=== PATIENT | male | born 1985 | race Caucasian/White ===

== ENCOUNTER → 2018-08-02 13:13 | Outpatient (CLI) | payer MEDICAID, SELFPAY ==
[2018-08-02 14:07] LABS: INR 0.98 (0.9-1.1); Prothrombin Time 10.1 seconds (9.4-11.8)
[2018-08-02 15:00] LABS: Basophils % 0.6 % (0.1-2.0); Eosinophils # 0.1 K/mm3 (0.0-0.4); Eosinophils % 1.6 % (0.1-12.0); Lymphocytes # 1.6 K/mm3 (0.7-4.5); Lymphocytes % 32.4 % (10-50); Mean Corpuscular HGB Conc 33.3 g/dL (31.8-35.4); Mean Corpuscular Hemoglobin 31.8 pg (27.0-31.2); Mean Corpuscular Volume 95.8 fl (80-94); Mean Platelet Volume 7.4 fl (7.4-10.4); Monocytes # 0.3 K/mm3 (0.1-1.0); Monocytes % 5.7 % (1.7-9.3); Neutrophils % 59.8 % (37.0-80.0); Platelet Count 202 K/mm3 (142-424); Red Blood Count 5.01 M/mm3 (4.60-6.20); Red Cell Distribution Width 12.3 % (11.5-17.5); White Blood Count 4.9 K/mm3 (4.8-10.8)
[2018-08-02 19:10] LABS: Alanine Aminotransferase 167 U/L (12-78); Albumin Level 4.1 gm/dL (3.4-5.0); Albumin/Globulin Ratio 1.2 (1.1-1.8); Alkaline Phosphatase 71 U/L (46-116); Anion Gap 11.6 mEq/L (5-15); Aspartate Amino Transferase 59 U/L (15-37); Bilirubin,Total 0.5 mg/dL (0.2-1.0); Blood Urea Nitrogen 20 mg/dL (7-18); Calcium 9.1 mg/dL (8.5-10.1); Carbon Dioxide 32 mmol/L (21.0-32.0); Chloride 101 mmol/L (98-107); Chol/HDL Ratio 3.6 (1-3.5); Cholesterol 206 mg/dL (140-200); Creatinine,Serum 1.19 mg/dL (0.70-1.30); Estimated Glomerular Filt Rate 70 ml/min (>60); GFR (African American) 84 ML/MIN (>60); Globulin 3.5 gm/dl (1.3-3.2); Glucose 81 mg/dL (74-106); HDL Cholesterol 58 mg/dL (27-67); LDL Cholesterol 116 mg/dL (0-130); Potassium 4.6 mmoL/L (3.5-5.1); Sodium 140 mmol/L (136-145); Thyroid Stimulating Hormone 2.15 uIU/ml (0.358-3.740); Total Protein,Serum 7.6 gm/dL (6.4-8.2); Triglycerides 160 mg/dL (30-200); VLDL Cholesterol 32 mg/dL (0-40)
[2018-08-03 08:24] LABS: Hep B Core Ab, Total Positive (Negative); Hepatitis B Surface Antigen Negative (Negative)
[2018-08-03 13:59] LABS: Hep A Ab, Total Negative (Negative); Hepatitis B Surf Ab Quant 746.5 mIU/mL (Immunity>9.9); Hepatitis C Antibody >11.0 s/co ratio (0.0-0.9); Vitamin D 25 Hydroxy 30.8 ng/mL (30.0-100.0)
[2018-08-03 14:00] LABS: HIV Screen 4th Generation wRfx Non Reactive (Non Reactive)
[2018-08-05 21:08] LABS: HCV Genotype Charge YES; Hepatitis C Genotype 1a (.)
== END ==
PROVIDERS: Visit Provider Physician Assistant
DX: B19.20 Unspecified viral hepatitis C without hepatic coma (principal); F41.9 Anxiety disorder, unspecified; Z20.2 Contact with and (suspected) exposure to infections with a predominantly sexual mode of transmission
CPT/HCPCS: 36415; 80053; 80061; 82652; 84443; 85025; 85610; 86703; 86704; 86706; 86708; 87340; 87380; 87522; 87902; G0432

== ENCOUNTER → 2019-02-28 12:27 | Outpatient (CLI) | payer OTHER, MEDICAID, SELFPAY ==
[2019-02-28 12:52] LABS: INR 1.03 (0.9-1.1); Prothrombin Time 10.7 seconds (9.4-11.8)
[2019-02-28 13:07] LABS: Basophils % 0.4 % (0.1-2.0); Hematocrit 39.9 % (42.0-52.0); Hemoglobin 13.5 g/dL (14.1-18.0); Lymphocytes % 25.2 % (10-50); Mean Corpuscular HGB Conc 33.8 g/dL (31.8-35.4); Mean Corpuscular Volume 91.8 fl (80-94); Mean Platelet Volume 7.3 fl (7.4-10.4); Monocytes # 0.2 K/mm3 (0.1-1.0); Monocytes % 5.2 % (1.7-9.3); Neutrophils # 2.7 K/mm3 (1.8-7.8); Neutrophils % 68.3 % (37.0-80.0); Platelet Count 218 K/mm3 (142-424); Red Blood Count 4.35 M/mm3 (4.60-6.20); Red Cell Distribution Width 12.4 % (11.5-17.5)
[2019-02-28 13:23] LABS: Alanine Aminotransferase 95 U/L (12-78); Albumin Level 3.8 gm/dL (3.4-5.0); Albumin/Globulin Ratio 1.1 (1.1-1.8); Alkaline Phosphatase 73 U/L (46-116); Anion Gap 10.4 mEq/L (5-15); Aspartate Amino Transferase 44 U/L (15-37); Bilirubin,Total 0.5 mg/dL (0.2-1.0); Blood Urea Nitrogen 16 mg/dL (7-18); Calcium 9.3 mg/dL (8.5-10.1); Carbon Dioxide 31 mmol/L (21.0-32.0); Chloride 103 mmol/L (98-107); Creatinine,Serum 1.13 mg/dL (0.70-1.30); Estimated Glomerular Filt Rate 73 ml/min (>60); GFR (African American) 89 ML/MIN (>60); Globulin 3.5 gm/dl (1.3-3.2); Glucose 91 mg/dL (74-106); Potassium 4.4 mmoL/L (3.5-5.1); Sodium 140 mmol/L (136-145); Total Protein,Serum 7.3 gm/dL (6.4-8.2)
[2019-03-04 10:10] LABS: HCV Genotype Charge YES; Hepatitis C Genotype 1a (.)
== END ==
PROVIDERS: Visit Provider Physician Assistant
DX: B19.20 Unspecified viral hepatitis C without hepatic coma (principal)
CPT/HCPCS: 36415; 80053; 85025; 85610; 87522; 87902

== ENCOUNTER → 2019-06-03 17:00 | Outpatient (CLI) | payer OTHER, MEDICAID, SELFPAY ==
[2019-06-03 19:40] LABS: Amphetamine/Metha Screen,Urine Negative ng/mL (<1000); Barbiturates Screen,Urine Negative ng/mL (<200); Benzodiazepines Screen,Urine Negative ng/mL (<200); Cannabinoid Screen,Urine Negative ng/mL (<50); Cocaine Screen,Urine Negative ng/mL (<300); Methadone Screen,Urine Negative ng/mL (<300); Opiate Screen,Urine Negative ng/mL (<300); Phencyclidine Screen,Urine Negative ng/mL (<25)
== END ==
PROVIDERS: Visit Provider Nurse Practitioner Family
DX: Z79.899 Other long term (current) drug therapy (principal)
CPT/HCPCS: 80305

== ENCOUNTER → 2019-08-16 17:43 | Outpatient (CLI) | payer OTHER, MEDICAID, SELFPAY ==
[2019-08-16 18:02] LABS: Basophils % 0.5 % (0.1-2.0); Eosinophils # 0.2 K/mm3 (0.0-0.4); Eosinophils % 2.6 % (0.1-12.0); Hematocrit 42.2 % (42.0-52.0); Hemoglobin 14.6 g/dL (14.1-18.0); Lymphocytes # 2.5 K/mm3 (0.7-4.5); Lymphocytes % 40.7 % (10-50); Mean Corpuscular HGB Conc 34.5 g/dL (31.8-35.4); Mean Corpuscular Hemoglobin 31.7 pg (27.0-31.2); Mean Corpuscular Volume 91.9 fl (80-94); Mean Platelet Volume 7.6 fl (7.4-10.4); Monocytes # 0.2 K/mm3 (0.1-1.0); Monocytes % 3.7 % (1.7-9.3); Neutrophils # 3.2 K/mm3 (1.8-7.8); Neutrophils % 52.4 % (37.0-80.0); Platelet Count 247 K/mm3 (142-424); Red Blood Count 4.59 M/mm3 (4.60-6.20); Red Cell Distribution Width 12.4 % (11.5-17.5); White Blood Count 6.1 K/mm3 (4.8-10.8)
[2019-08-16 18:10] LABS: INR 1.01 (0.9-1.1); Prothrombin Time 10.5 seconds (9.4-11.8)
[2019-08-16 18:36] LABS: Alanine Aminotransferase 127 U/L (12-78); Albumin Level 4.1 gm/dL (3.4-5.0); Albumin/Globulin Ratio 1.3 (1.1-1.8); Alkaline Phosphatase 70 U/L (46-116); Aspartate Amino Transferase 68 U/L (15-37); Bilirubin,Total 0.4 mg/dL (0.2-1.0); Blood Urea Nitrogen 20 mg/dL (7-18); Calcium 9.4 mg/dL (8.5-10.1); Chloride 104 mmol/L (98-107); Creatinine,Serum 1.12 mg/dL (0.70-1.30); Estimated Glomerular Filt Rate 74 ml/min (>60); GFR (African American) 90 ML/MIN (>60); Globulin 3.2 gm/dl (1.3-3.2); Glucose 92 mg/dL (74-106); Potassium 4.5 mmoL/L (3.5-5.1); Sodium 143 mmol/L (136-145); Total Protein,Serum 7.3 gm/dL (6.4-8.2)
[2019-08-16 19:30] LABS: Anion Gap 12.5 mEq/L (5-15); Carbon Dioxide 31 mmol/L (21.0-32.0)
[2019-08-18 09:43] LABS: Hep A Ab, IgM Negative (Negative); Hep A Ab, Total Positive (Negative); Hep B Core Ab, Total Positive (Negative)
[2019-08-18 12:32] LABS: HIV Screen 4th Generation wRfx Non Reactive (Non Reactive); Hep B Surface Ab, Qual Reactive (.); Hepatitis B Surface Antigen Negative (Negative)
[2019-08-20 23:50] LABS: HCV Genotype Charge YES; Hepatitis C Genotype 1a (.)
== END ==
PROVIDERS: Visit Provider Physician Assistant
DX: B19.20 Unspecified viral hepatitis C without hepatic coma (principal); M54.5 Low back pain; Z11.4 Encounter for screening for human immunodeficiency virus [HIV]
CPT/HCPCS: 36415; 80053; 85025; 85610; 86703; 86704; 86706; 86708; 87340; 87522; 87902; G0432

== ENCOUNTER → 2019-09-24 08:53 | Outpatient (CLI) | payer OTHER, MEDICAID, SELFPAY ==
[2019-09-24 09:12] LABS: Basophils % 0.2 % (0.1-2.0); Eosinophils # 0.1 K/mm3 (0.0-0.4); Eosinophils % 2.4 % (0.1-12.0); Hematocrit 42.7 % (42.0-52.0); Hemoglobin 14.6 g/dL (14.1-18.0); Lymphocytes # 1.3 K/mm3 (0.7-4.5); Lymphocytes % 30.3 % (10-50); Mean Corpuscular HGB Conc 34.1 g/dL (31.8-35.4); Mean Corpuscular Hemoglobin 31.8 pg (27.0-31.2); Mean Corpuscular Volume 93.3 fl (80-94); Mean Platelet Volume 8.5 fl (7.4-10.4); Monocytes # 0.2 K/mm3 (0.1-1.0); Monocytes % 5.1 % (1.7-9.3); Neutrophils # 2.6 K/mm3 (1.8-7.8); Platelet Count 214 K/mm3 (142-424); Red Blood Count 4.58 M/mm3 (4.60-6.20); Red Cell Distribution Width 12.5 % (11.5-17.5); White Blood Count 4.2 K/mm3 (4.8-10.8)
[2019-09-24 09:19] LABS: INR 0.99 (0.9-1.1); Prothrombin Time 10.3 seconds (9.4-11.8)
[2019-09-24 10:12] LABS: Chloride 102 mmol/L (98-107)
[2019-09-24 10:13] LABS: Potassium 4.3 mmoL/L (3.5-5.1); Sodium 138 mmol/L (136-145)
[2019-09-24 10:15] LABS: Alanine Aminotransferase 77 U/L (12-78); Aspartate Amino Transferase 51 U/L (17-59); Blood Urea Nitrogen 20 mg/dl (9-20); Estimated Glomerular Filt Rate 76 ml/min (>60); GFR (African American) 92 ML/MIN (>60)
[2019-09-24 10:16] LABS: Albumin Level 4.3 g/dl (3.5-5.0); Albumin/Globulin Ratio 1.4 (1.1-1.8); Alkaline Phosphatase 63 U/L (38-126); Anion Gap 7.3 mEq/L (5-15); Bilirubin,Total 0.6 mg/dl (0.2-1.3); Calcium 9.7 mg/dl (8.4-10.2); Carbon Dioxide 33 mmol/L (22.0-30.0); Glucose 53 mg/dl (74-100); Total Protein,Serum 7.3 g/dl (6.3-8.2)
== END ==
PROVIDERS: Visit Provider Physician Assistant
DX: B19.20 Unspecified viral hepatitis C without hepatic coma (principal)
CPT/HCPCS: 36415; 80053; 85025; 85610; 87522

== ENCOUNTER → 2019-10-07 09:55 | Outpatient (CLI) | payer OTHER, MEDICAID, SELFPAY ==
[2019-10-07 11:04] LABS: Basophils % 0.3 % (0.1-2.0); Eosinophils # 0.1 K/mm3 (0.0-0.4); Hematocrit 39.9 % (42.0-52.0); Hemoglobin 14.1 g/dL (14.1-18.0); Lymphocytes # 1.6 K/mm3 (0.7-4.5); Lymphocytes % 34.3 % (10-50); Mean Corpuscular HGB Conc 35.4 g/dL (31.8-35.4); Mean Corpuscular Hemoglobin 31.8 pg (27.0-31.2); Mean Platelet Volume 8.2 fl (7.4-10.4); Monocytes # 0.2 K/mm3 (0.1-1.0); Monocytes % 5.1 % (1.7-9.3); Neutrophils # 2.6 K/mm3 (1.8-7.8); Neutrophils % 57.3 % (37.0-80.0); Platelet Count 204 K/mm3 (142-424); Red Blood Count 4.43 M/mm3 (4.60-6.20); Red Cell Distribution Width 12.4 % (11.5-17.5); White Blood Count 4.5 K/mm3 (4.8-10.8)
[2019-10-07 12:49] LABS: Alanine Aminotransferase 24 U/L (12-78); Albumin Level 4.2 g/dl (3.5-5.0); Albumin/Globulin Ratio 1.5 (1.1-1.8); Alkaline Phosphatase 57 U/L (38-126); Anion Gap 12.4 mEq/L (5-15); Aspartate Amino Transferase 33 U/L (17-59); Bilirubin,Total 0.5 mg/dl (0.2-1.3); Blood Urea Nitrogen 25 mg/dl (9-20); Calcium 9.6 mg/dl (8.4-10.2); Carbon Dioxide 26 mmol/L (22.0-30.0); Chloride 102 mmol/L (98-107); Estimated Glomerular Filt Rate 95 ml/min (>60); GFR (African American) 116 ML/MIN (>60); Globulin 2.8 g/dL (1.3-3.2); Glucose 110 mg/dl (74-100); Potassium 4.4 mmoL/L (3.5-5.1); Sodium 136 mmol/L (136-145)
== END ==
PROVIDERS: Visit Provider Physician Assistant
DX: B19.20 Unspecified viral hepatitis C without hepatic coma (principal)
CPT/HCPCS: 36415; 80053; 85025; 87522

== ENCOUNTER → 2019-10-21 11:28 | Outpatient (CLI) | payer OTHER, MEDICAID, SELFPAY ==
[2019-10-21 11:30] LABS: Microscopic, Urine URINE MICROSCOPIC (MICROSCOPIC)
[2019-10-21 11:52] LABS: Basophils % 0.3 % (0.1-2.0); Eosinophils # 0.1 K/mm3 (0.0-0.4); Eosinophils % 2.9 % (0.1-12.0); Hematocrit 41.2 % (42.0-52.0); Hemoglobin 14.3 g/dL (14.1-18.0); Lymphocytes # 1.7 K/mm3 (0.7-4.5); Lymphocytes % 36.4 % (10-50); Mean Corpuscular HGB Conc 34.7 g/dL (31.8-35.4); Mean Corpuscular Hemoglobin 31.8 pg (27.0-31.2); Mean Corpuscular Volume 91.5 fl (80-94); Mean Platelet Volume 8.3 fl (7.4-10.4); Monocytes # 0.2 K/mm3 (0.1-1.0); Monocytes % 4.6 % (1.7-9.3); Neutrophils # 2.5 K/mm3 (1.8-7.8); Neutrophils % 55.8 % (37.0-80.0); Platelet Count 211 K/mm3 (142-424); Red Cell Distribution Width 12.6 % (11.5-17.5); White Blood Count 4.6 K/mm3 (4.8-10.8)
[2019-10-21 12:07] LABS: INR 0.97 (0.9-1.1); Prothrombin Time 10.1 seconds (9.4-11.8)
[2019-10-21 12:26] LABS: Appearance,Urine CLEAR (Clear); Bilirubin,Urine Negative (Negative); Blood, Urine Negative (Negative); Color,Urine YELLOW (Yellow); Glucose,Urine (UA) Negative (Negative); Ketones,Urine Negative (Negative); Leukocyte Esterase,Urine Negative (Negative); Nitrate,Urine Negative (Negative); Protein,Urine Negative (Negative); Specific Gravity, Urine 1.025 (1.005-1.030); Urobilinogen,Urine 0.2 EU/dl (0.2)
[2019-10-21 12:37] LABS: RBC,Urine Occasional #/hpf (0-3); Squamous Epithelial Cell,Urine Occasional #/hpf (0-5); WBC,Urine Occasional #/hpf (0-3)
[2019-10-21 13:11] LABS: Chloride 101 mmol/L (98-107); Sodium 137 mmol/L (136-145)
[2019-10-21 13:12] LABS: Potassium 4.6 mmoL/L (3.5-5.1)
[2019-10-21 13:14] LABS: Alanine Aminotransferase 17 U/L (12-78); Anion Gap 10.6 mEq/L (5-15); Aspartate Amino Transferase 31 U/L (17-59); Blood Urea Nitrogen 18 mg/dl (9-20); Carbon Dioxide 30 mmol/L (22.0-30.0); Estimated Glomerular Filt Rate 85 ml/min (>60); GFR (African American) 102 ML/MIN (>60)
[2019-10-21 13:15] LABS: Albumin Level 4.1 g/dl (3.5-5.0); Albumin/Globulin Ratio 1.5 (1.1-1.8); Alkaline Phosphatase 58 U/L (38-126); Bilirubin,Total 0.6 mg/dl (0.2-1.3); Calcium 9.7 mg/dl (8.4-10.2); Globulin 2.8 g/dL (1.3-3.2); Glucose 98 mg/dl (74-100); Total Protein,Serum 6.9 g/dl (6.3-8.2)
== END ==
PROVIDERS: Nurse Practitioner Family; Visit Provider Physician Assistant
DX: B19.20 Unspecified viral hepatitis C without hepatic coma (principal)
CPT/HCPCS: 36415; 80053; 81001; 85025; 85610; 87522

== ENCOUNTER → 2019-11-07 12:59 | Outpatient (CLI) | payer OTHER, MEDICAID, SELFPAY ==
[2019-11-10 07:20] LABS: Neisseria gonorrhoeae, NAA Negative (Negative)
== END ==
PROVIDERS: Emergency Medicine; Visit Provider Physician Assistant
DX: B19.20 Unspecified viral hepatitis C without hepatic coma (principal); Z20.2 Contact with and (suspected) exposure to infections with a predominantly sexual mode of transmission
CPT/HCPCS: 36415; 87491; 87522; 87591

== ENCOUNTER → 2019-11-18 16:29 | Outpatient (CLI) | payer OTHER, MEDICAID, SELFPAY ==
[2019-11-18 16:34] LABS: MANUAL DIFFERENTIAL MANUAL DIFFERENTIAL (MANUAL DIFF)
[2019-11-18 17:25] LABS: Basophils # 0.1 K/mm3 (0-0.2); Basophils % 0.8 % (0.1-2.0); Eosinophils # 0.1 K/mm3 (0.0-0.4); Eosinophils % 1.6 % (0.1-12.0); Hematocrit 38.6 % (42.0-52.0); Hemoglobin 14.1 g/dL (14.1-18.0); Lymphocytes # 2.4 K/mm3 (0.7-4.5); Mean Corpuscular HGB Conc 36.5 g/dL (31.8-35.4); Mean Corpuscular Hemoglobin 32.9 pg (27.0-31.2); Mean Corpuscular Volume 90.2 fl (80-94); Monocytes # 0.4 K/mm3 (0.1-1.0); Monocytes % 5.3 % (1.7-9.3); Neutrophils % 62.4 % (37.0-80.0); Platelet Count 222 K/mm3 (142-424); Red Blood Count 4.27 M/mm3 (4.60-6.20); Red Cell Distribution Width 12.4 % (11.5-17.5)
[2019-11-18 18:03] LABS: Eosinophils % 1 % (0-3); Lymphocytes % 32 % (10-50); Monocytes % 3 % (2-9); Neutrophils % 64 % (42-76); RBC Morphology Normal; Total Cells Counted 100
[2019-11-18 18:04] LABS: Platelet Estimate Normal
[2019-11-18 18:56] LABS: Chloride 103 mmol/L (98-107)
[2019-11-18 18:57] LABS: Potassium 4.4 mmoL/L (3.5-5.1); Sodium 137 mmol/L (136-145)
[2019-11-18 18:59] LABS: Alanine Aminotransferase 18 U/L (12-78); Alkaline Phosphatase 64 U/L (38-126); Anion Gap 11.4 mEq/L (5-15); Aspartate Amino Transferase 41 U/L (17-59); Bilirubin,Total 0.6 mg/dl (0.2-1.3); Blood Urea Nitrogen 26 mg/dl (9-20); Carbon Dioxide 27 mmol/L (22.0-30.0); Estimated Glomerular Filt Rate 76 ml/min (>60); GFR (African American) 92 ML/MIN (>60)
[2019-11-18 19:00] LABS: Albumin Level 4.4 g/dl (3.5-5.0); Albumin/Globulin Ratio 1.6 (1.1-1.8); Calcium 9.7 mg/dl (8.4-10.2); Globulin 2.8 g/dL (1.3-3.2); Glucose 104 mg/dl (74-100); Total Protein,Serum 7.2 g/dl (6.3-8.2)
== END ==
PROVIDERS: Visit Provider Physician Assistant
DX: B19.20 Unspecified viral hepatitis C without hepatic coma (principal)
CPT/HCPCS: 36415; 80053; 85007; 85014; 85018; 85048; 85049

== ENCOUNTER → 2019-12-22 15:10 | Outpatient (CLI) | payer OTHER, MEDICAID, SELFPAY | PROVIDERS: PCP Physician Assistant; Visit Provider Internal Medicine Cardiovascular Disease | DX: R00.2 Palpitations (principal); R07.9 Chest pain, unspecified; R06.00 Dyspnea, unspecified | CPT/HCPCS: 93225 ==

== ENCOUNTER → 2020-01-06 07:39 | Outpatient (CLI) | payer OTHER, MEDICAID, SELFPAY ==
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
--- NOTE | 2020-01-06 | CA_ITS ---
APPROVED REPORT Exam: Exercise Treadmill Technologist: Dalia Centeno Ht: 6 ft 0 in Wt: 250 lbs BSA: 2.34 m2 HR: 67 bpm BP: 134/87 mmHg Medical History Medications: Omeprazole,,,,, Gabapentin,,,,, Tylenol,,,,, Suboxone,,,,, Allergies: No known drug allergies Stress Test Details Test: Chano HR Resting HR: 70 bpm Max Heart Rate (APMHR): 184 bpm Max HR Achieved: 173 bpm Target HR (85% APMHR): 156 bpm % of APMHR: 94 BP Resting BP: 134/87 mmHg Max BP: 162/92 mmHg ECG Clinical Exercise duration: 09:49 min Highest Stage Achieved: Exercise capacity: 10.1 METs Stress ECG Conclusion Resting electrocardiogram showed sinus rhythm, with exercise there is less than 1.[address] segment depression noted from the baseline EKG. The EKG portion of the exercise treadmill stress test is negative for ischemia. Conclusions: Normal exercise treadmill stress test. Test Summary REST . . . . . . . Standing REST . . . . . . . Sitting REST 05:34 0.0 1.2 70 . 134/ 87 . . Stage 1 01:00 10.0 1.7 91 . . . . Stage 1 02:00 10.0 1.7 98 . . . . Stage 1 03:00 10.0 1.7 97 . 142/ 90 . . Stage 2 01:00 12.0 2.5 115 . . . . Stage 2 02:00 12.0 2.5 119 . 148/ 90 . . Stage 2 03:00 12.0 2.5 122 . 148/ 90 . . Stage 3 01:00 14.0 3.4 133 . . . . Stage 3 02:00 14.0 3.4 154 . . . . Stage 3 03:00 14.0 3.4 159 . 162/ 92 . . Stage 4 00:49 16.0 0.0 172 . . . Stop exercise at 09:49 RECOVERY 01:00 0.0 0.0 129 . . . . RECOVERY 02:00 0.0 0.0 103 . . . . RECOVERY 03:00 0.0 0.0 97 . . . . RECOVERY 04:00 0.0 0.0 101 . . . . RECOVERY 05:00 0.0 0.0 88 . 132/ 87 . . RECOVERY 06:00 0.0 0.0 86 . 132/ 87 . . RECOVERY 06:28 0.0 0.0 89 . 142/ 89 . . Electronically signed by : Robert Benson, 01/06/2020 10:04:33
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
== END ==
PROVIDERS: PCP Physician Assistant; Visit Provider Internal Medicine Cardiovascular Disease
DX: R07.9 Chest pain, unspecified (principal); R00.2 Palpitations; R06.00 Dyspnea, unspecified
CPT/HCPCS: 93017; 93306; 93350

== ENCOUNTER → 2020-02-02 16:47 | Outpatient (CLI) | payer OTHER, MEDICAID, SELFPAY ==
[2020-02-02 17:05] LABS: Basophils % 0.4 % (0.1-2.0); Eosinophils # 0.1 K/mm3 (0.0-0.4); Eosinophils % 2.5 % (0.1-12.0); Hematocrit 39.2 % (42.0-52.0); Hemoglobin 14.3 g/dL (14.1-18.0); Lymphocytes # 2.1 K/mm3 (0.7-4.5); Lymphocytes % 38.2 % (10-50); Mean Corpuscular HGB Conc 36.4 g/dL (31.8-35.4); Mean Corpuscular Hemoglobin 32.6 pg (27.0-31.2); Mean Corpuscular Volume 89.8 fl (80-94); Mean Platelet Volume 8.1 fl (7.4-10.4); Monocytes # 0.3 K/mm3 (0.1-1.0); Monocytes % 5.2 % (1.7-9.3); Neutrophils # 2.9 K/mm3 (1.8-7.8); Neutrophils % 53.7 % (37.0-80.0); Platelet Count 202 K/mm3 (142-424); Red Blood Count 4.37 M/mm3 (4.60-6.20); Red Cell Distribution Width 12.9 % (11.5-17.5); White Blood Count 5.4 K/mm3 (4.8-10.8)
--- NOTE | 2020-02-02 17:14 | XR_ITS ---
PROCEDURE: XR ELBOW LT MIN 3V CLINICAL INDICATION: tennis elbow left Pain and tenderness COMPARISON: No exams were available for comparison FINDINGS: No fracture or dislocation. No lytic or blastic change. There is normal mineralization. The joint spaces are well-preserved. No significant degenerative/arthritic changes. No erosive changes evident. Other findings:None. IMPRESSION: No acute findings. Dictated by: Sal Chase MD 02/03/2020 08:23 Electronically signed by Sal Chase MD in [place] 02/03/2020 08:23
[2020-02-02 19:07] LABS: Alanine Aminotransferase 20 U/L (12-78); Albumin Level 4.5 g/dl (3.5-5.0); Albumin/Globulin Ratio 1.7 (1.1-1.8); Alkaline Phosphatase 62 U/L (38-126); Anion Gap 10.3 mEq/L (5-15); Aspartate Amino Transferase 49 U/L (17-59); Bilirubin,Total 0.5 mg/dl (0.2-1.3); Blood Urea Nitrogen 24 mg/dl (9-20); Calcium 9.5 mg/dl (8.4-10.2); Carbon Dioxide 31 mmol/L (22.0-30.0); Chloride 100 mmol/L (98-107); Chol/HDL Ratio 3.5 (1-3.5); Cholesterol 180 mg/dl (140-200); Estimated Glomerular Filt Rate 69 ml/min (>60); GFR (African American) 83 ML/MIN (>60); Globulin 2.7 g/dL (1.3-3.2); Glucose 101 mg/dl (74-100); HDL Cholesterol 52 mg/dl (40-60); Potassium 4.3 mmoL/L (3.5-5.1); Sodium 137 mmol/L (136-145); Total Protein,Serum 7.2 g/dl (6.3-8.2); Triglycerides 256 mg/dl (30-150); VLDL Cholesterol 51 mg/dL (0-40)
[2020-02-02 19:18] LABS: Direct LDL Cholesterol 106.82 mg/dL (100-129)
[2020-02-02 19:24] LABS: T4 (Thyroxine) 7.8 ug/dl (5.53-11.0)
[2020-02-02 19:38] LABS: Thyroid Stimulating Hormone 3.86 uIU/mL (0.465-4.68)
[2020-02-04 17:03] LABS: H. pylori Breath Test Negative (Negative); PSA, Free 0.21 ng/mL; Prostate Specific Ag 0.9 ng/mL (0.0-4.0)
== END ==
PROVIDERS: Visit Provider Physician Assistant
DX: R10.13 Epigastric pain (principal); R14.0 Abdominal distension (gaseous); M77.12 Lateral epicondylitis, left elbow
CPT/HCPCS: 36415; 73080; 80053; 80061; 83013; 84153; 84154; 84436; 84443; 85025

== ENCOUNTER → 2020-02-23 10:04 | Outpatient (CLI) | payer OTHER, MEDICAID, SELFPAY ==
[2020-02-24 14:13] LABS: Covid-19 Nasal PCR Sendout Lex Not Detected
== END ==
PROVIDERS: PCP Physician Assistant; Referring Provider Physician Assistant; Visit Provider Physician Assistant
DX: Z03.818 Encounter for observation for suspected exposure to other biological agents ruled out (principal)
CPT/HCPCS: U0004

== ENCOUNTER → 2020-03-02 08:39 | Outpatient (CLI) | payer OTHER, MEDICAID, SELFPAY ==
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
--- NOTE | 2020-03-02 10:28 | XR_ITS ---
PROCEDURE: XR KNEE RT 4V CLINICAL INDICATION: rt knee pain COMPARISON: No exams were available for comparison FINDINGS: No fracture or dislocation. No lytic or blastic change. There is normal mineralization. There is mild joint space narrowing medially. The patella is intact and there is no definite effusion. IMPRESSION: Mild degenerative change medial joint compartment, no acute bony pathology seen Dictated Dr. Ezekiel Carrera MD 03/02/2020 11:47 Dr. Ezekiel Phillips MD in [place] 03/02/2020 11:47
== END ==
PROVIDERS: PCP Physician Assistant; Visit Provider Physician Assistant
DX: R10.13 Epigastric pain (principal); R14.0 Abdominal distension (gaseous); M25.561 Pain in right knee
CPT/HCPCS: 73564; 76705

== ENCOUNTER → 2020-03-09 16:45 | Outpatient (CLI) | payer OTHER, MEDICAID, SELFPAY ==
[2020-03-09 17:11] LABS: Basophils % 0.3 % (0.1-2.0); Eosinophils # 0.1 K/mm3 (0.0-0.4); Eosinophils % 2.1 % (0.1-12.0); Hematocrit 38.2 % (42.0-52.0); Hemoglobin 13.4 g/dL (14.1-18.0); Lymphocytes % 31.6 % (10-50); Mean Corpuscular HGB Conc 35.2 g/dL (31.8-35.4); Mean Corpuscular Hemoglobin 33.1 pg (27.0-31.2); Mean Corpuscular Volume 94.1 fl (80-94); Mean Platelet Volume 7.8 fl (7.4-10.4); Monocytes # 0.3 K/mm3 (0.1-1.0); Neutrophils # 3.9 K/mm3 (1.8-7.8); Neutrophils % 61.1 % (37.0-80.0); Platelet Count 188 K/mm3 (142-424); Red Blood Count 4.06 M/mm3 (4.60-6.20); Red Cell Distribution Width 12.9 % (11.5-17.5); White Blood Count 6.4 K/mm3 (4.8-10.8)
[2020-03-09 18:11] LABS: INR 0.99 (0.9-1.1); Prothrombin Time 10.2 seconds (9.4-11.8)
[2020-03-09 18:47] LABS: Alanine Aminotransferase 18 U/L (12-78); Albumin Level 4.2 g/dl (3.5-5.0); Albumin/Globulin Ratio 1.6 (1.1-1.8); Alkaline Phosphatase 73 U/L (38-126); Anion Gap 11.1 mEq/L (5-15); Aspartate Amino Transferase 37 U/L (17-59); Bilirubin,Total 0.5 mg/dl (0.2-1.3); Blood Urea Nitrogen 27 mg/dl (9-20); Calcium 9.3 mg/dl (8.4-10.2); Carbon Dioxide 32 mmol/L (22.0-30.0); Chloride 99 mmol/L (98-107); Estimated Glomerular Filt Rate 75 ml/min (>60); GFR (African American) 91 ML/MIN (>60); Globulin 2.6 g/dL (1.3-3.2); Glucose 85 mg/dl (74-100); Potassium 4.1 mmoL/L (3.5-5.1); Sodium 138 mmol/L (136-145); Total Protein,Serum 6.8 g/dl (6.3-8.2)
== END ==
PROVIDERS: Visit Provider Physician Assistant
DX: B19.20 Unspecified viral hepatitis C without hepatic coma (principal); R10.13 Epigastric pain; R14.0 Abdominal distension (gaseous)
CPT/HCPCS: 36415; 80053; 85025; 85610; 87522; 87902

== ENCOUNTER → 2020-07-05 16:47 | Outpatient (CLI) | payer OTHER, MEDICAID, SELFPAY ==
[2020-07-05 17:22] LABS: Basophils % 0.4 % (0.1-2.0); Eosinophils # 0.1 K/mm3 (0.0-0.4); Eosinophils % 2.5 % (0.1-12.0); Hematocrit 39.7 % (42.0-52.0); Hemoglobin 12.9 g/dL (14.1-18.0); Lymphocytes # 1.8 K/mm3 (0.7-4.5); Lymphocytes % 36.8 % (10-50); Mean Corpuscular HGB Conc 32.5 g/dL (31.8-35.4); Mean Corpuscular Hemoglobin 30.6 pg (27.0-31.2); Mean Platelet Volume 7.5 fl (7.4-10.4); Monocytes # 0.3 K/mm3 (0.1-1.0); Neutrophils # 2.6 K/mm3 (1.8-7.8); Neutrophils % 54.2 % (37.0-80.0); Platelet Count 218 K/mm3 (142-424); Red Blood Count 4.23 M/mm3 (4.60-6.20); Red Cell Distribution Width 12.2 % (11.5-17.5); White Blood Count 4.8 K/mm3 (4.8-10.8)
[2020-07-05 17:34] LABS: INR 1.01 (0.9-1.1); Prothrombin Time 11.2 seconds (9.4-11.8)
[2020-07-05 17:57] LABS: Alanine Aminotransferase 19 U/L (12-78); Albumin/Globulin Ratio 1.8 (1.1-1.8); Alkaline Phosphatase 65 U/L (38-126); Anion Gap 13.3 mEq/L (5-15); Aspartate Amino Transferase 39 U/L (17-59); Bilirubin,Total 0.6 mg/dl (0.2-1.3); Blood Urea Nitrogen 20 mg/dl (9-20); Calcium 9.9 mg/dl (8.4-10.2); Carbon Dioxide 31 mmol/L (22.0-30.0); Chloride 99 mmol/L (98-107); Estimated Glomerular Filt Rate 75 ml/min (>60); GFR (African American) 91 ML/MIN (>60); Globulin 2.8 g/dL (1.3-3.2); Glucose 104 mg/dl (74-100); Potassium 4.3 mmoL/L (3.5-5.1); Sodium 139 mmol/L (136-145); Total Protein,Serum 7.8 g/dl (6.3-8.2)
== END ==
PROVIDERS: Visit Provider Emergency Medicine
DX: B19.20 Unspecified viral hepatitis C without hepatic coma (principal)
CPT/HCPCS: 36415; 80053; 85025; 85610; 87522

== ENCOUNTER 2020-07-23 13:01 | Emergency (ER) | payer OTHER, MEDICAID, SELFPAY ==
[2020-07-23 13:06] VITALS: BP 137/69; PULSE 87; RESP 19; TEMP 37.5; O2SAT 98; BMI 33.9
--- NOTE | 2020-07-23 13:36 | HMH.EDUTC ---
[facility] [place] [facility] [place] Clinical Impression: Exposure to COVID-19 virus, Viral syndrome Disposition: Home, Self-Care Condition on Discharge: Good Instructions: Preventing the Spread of Coronavirus Discharge Instructions Additional Instructions: Drink plenty of fluids. Take tylenol for pain or fever. Return if you begin to have difficulty breathing. Follow up with your regular doctor. GO TO THE ER FOR ANY WORSENING SYMPTOMS Referrals: Mera Pressley PA [Primary Care Provider] - Forms: Work/School Release Time of Disposition: 14:11 Medical Decision Making - Medical Records Medical records reviewed: No: I reviewed the patient's medical records. - Dario Inquiry Pt receiving controlled substance: No Vital Signs: 07/23/20 13:06 07/23/20 13:45 Temperature 99.5 F 99.5 F Temperature Source Oral Pulse Rate 87 Pulse Rate [Left] 87 Respiratory Rate 19 19 Blood Pressure 137/69 Blood Pressure [Right Arm] 137/69 Blood Pressure Mean [Right Arm] 91 Blood Pressure Source [Right Arm] Automatic Cuff Blood Pressure Position [Right Arm] Sitting 02 Sat by Pulse Oximetry 98 Oxygen Delivery Method Room Air - Lab Data Lab Results 07/23/20 13:16: SARS-CoV-2 (PCR) Positive 07/23/20 13:53: Influenza Type A Ag Negative, Influenza Type B Ag Negative [facility] [place] [facility] [place] - General Stated complaint: covid test Time Seen by Provider: 07/23/20 13:36 Mode of Arrival: Ambulatory Source of Information: Patient Limitations: No Limitations Description of Symptoms (Recalled from Triage Doc. by RN): Covid testing symptomatic no exposure known-headache, weakness and fatigue HEENT Symptoms (Recalled from RN notes): No Resp Symptoms (Recalled from RN notes): No Skin Symptoms (Recalled from RN notes): No MS Symptoms (Recalled from RN notes): No Functional Status (Recalled from RN notes): wnl - History of Present Illness Provider Complaint: He states that he began feeling bad last night. Since then he has ran a fever, had nausea and felt bad. Onset (ago): hour(s) - Related Data Home Medications Medication Instructions Recorded Confirmed Buprenorphine HCl/Naloxone HCl 1 each SL BID 07/23/20 07/23/20 [Suboxone 8mg/2mg ODT] Gabapentin 300 mg PO BID 07/23/20 Allergies Allergy/AdvReac Type Severity Reaction Status Date / Time No Known Allergies Allergy Verified 07/23/20 13:18 - Worker's Comp Is this a Worker's Comp case?: No Is this an [facility] Worker's Comp?: No Is this a [place] Worker's Comp?: No H History - Hepatitis A Screen Drug use history?: No High risk sexual behaviors?: No History of sexually transmitted infection?: No Currently employed?: No Childcare worker?: No Do you have indoor plumbing?: Yes Do you have electricity?: Yes Attestation statement:: This patient has been screened for Hepatitis A risk factors. I have reviewed the patient's past medical history: Yes Medical History: Reports:: Anxiety, Hepatitis, Hiatal Hernia, Migraine Other Medical History: Reports: Sinus Problems, Other Other Surgeries: Yes: No Previous Surgery, Colonoscopy Amputation: No Fractures: No - Social History Smoking Status: Never smoker Tobacco Type: e-cigarettes Alcohol Intake: never Substance Use Type: denies use, former substance user, heroin Occupational Status: employed Housing: house Household Members: significant other - Psychiatric History Pschychiatric History:: Reports:: Anxiety Family Hx:: Coronary Artery Disease, Diabetes ROS Obtained: Yes All systems reviewed & no additional complaints - Constitutional Constitutional: Reports system reviewed and no additional complaints, except as docu - Eyes Eyes: Reports system reviewed and no additional complaints, except as docu - ENT Ears, Nose, Mouth, and Throat: Reports system reviewed and no additional complaints, except as docu - Cardiovascular Cardiovascular: Reports system reviewed and no additional complaints, except a
[2020-07-23 13:45] VITALS: BP 137/69; PULSE 87; RESP 19; TEMP 37.5; O2SAT 98
[2020-07-23 16:06] LABS: UTC Influenza A Antigen Negative (Negative); UTC Influenza B Antigen Negative (Negative)
[2020-07-24 09:20] LABS: Covid-19 Nasal PCR Sendout P&C POSITIVE
--- NOTE | 2020-07-24 14:46 | PC.NURSE ---
PT NOTIFIED OF POSITIVE COVID TEST RESULTS
== END 2020-07-23 14:29 | disposition home or self-care (01) ==
PROVIDERS: Emergency Provider Nurse Practitioner Family; PCP Physician Assistant
DX: U07.1 COVID-19 (principal); F41.9 Anxiety disorder, unspecified; F17.290 Nicotine dependence, other tobacco product, uncomplicated
CPT/HCPCS: 87804; 99201; U0004

== ENCOUNTER → 2020-12-14 14:14 | Outpatient (CLI) | payer BC, MEDICAID, SELFPAY ==
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
== END ==
PROVIDERS: PCP Physician Assistant; Visit Provider Orthopaedic Surgery
DX: G56.03 Carpal tunnel syndrome, bilateral upper limbs (principal); M25.531 Pain in right wrist; M25.532 Pain in left wrist
CPT/HCPCS: 73110

== ENCOUNTER → 2021-01-18 17:50 | Outpatient (CLI) | payer BC, MEDICAID, SELFPAY ==
[2021-01-18 18:07] LABS: Basophils % 0.4 % (0.1-2.0); Eosinophils # 0.2 K/mm3 (0.0-0.4); Eosinophils % 3.2 % (0.1-12.0); Hematocrit 39.3 % (42.0-52.0); Hemoglobin 13.7 g/dL (14.1-18.0); Lymphocytes # 1.7 K/mm3 (0.7-4.5); Lymphocytes % 35.8 % (10-50); Mean Corpuscular HGB Conc 34.8 g/dL (31.8-35.4); Mean Corpuscular Hemoglobin 30.8 pg (27.0-31.2); Mean Corpuscular Volume 88.6 fl (80-94); Mean Platelet Volume 8.2 fl (7.4-10.4); Monocytes # 0.3 K/mm3 (0.1-1.0); Monocytes % 5.6 % (1.7-9.3); Neutrophils # 2.6 K/mm3 (1.8-7.8); Platelet Count 199 K/mm3 (142-424); Red Blood Count 4.44 M/mm3 (4.60-6.20); Red Cell Distribution Width 12.8 % (11.5-17.5); White Blood Count 4.7 K/mm3 (4.8-10.8)
[2021-01-18 18:36] LABS: Alanine Aminotransferase 26 U/L (12-78); Albumin Level 4.8 g/dl (3.5-5.0); Albumin/Globulin Ratio 1.8 (1.1-1.8); Alkaline Phosphatase 69 U/L (38-126); Anion Gap 10.2 mEq/L (5-15); Aspartate Amino Transferase 47 U/L (17-59); Bilirubin,Total 0.8 mg/dl (0.2-1.3); Blood Urea Nitrogen 21 mg/dl (9-20); Calcium 9.6 mg/dl (8.4-10.2); Carbon Dioxide 30 mmol/L (22.0-30.0); Chloride 102 mmol/L (98-107); Chol/HDL Ratio 3.5 (1-3.5); Cholesterol 194 mg/dl (140-200); Estimated Glomerular Filt Rate 75 ml/min (>60); GFR (African American) 91 ML/MIN (>60); Globulin 2.7 g/dL (1.3-3.2); Glucose 75 mg/dl (74-100); HDL Cholesterol 55 mg/dl (40-60); Potassium 4.2 mmoL/L (3.5-5.1); Sodium 138 mmol/L (136-145); Total Protein,Serum 7.5 g/dl (6.3-8.2); Triglycerides 105 mg/dl (30-150); VLDL Cholesterol 21 mg/dL (0-40)
[2021-01-18 18:47] LABS: Direct LDL Cholesterol 114.27 mg/dL (100-129)
[2021-01-18 18:53] LABS: T4 (Thyroxine) 8.8 ug/dl (5.53-11.0)
[2021-01-18 19:06] LABS: Thyroid Stimulating Hormone 1.86 uIU/mL (0.465-4.68)
[2021-01-20 06:42] LABS: Testosterone,Total 372 ng/dL (264-916)
[2021-01-20 17:53] LABS: Peripheral Smear Review Scanned Result
== END ==
PROVIDERS: Visit Provider Physician Assistant
DX: R16.1 Splenomegaly, not elsewhere classified (principal)
CPT/HCPCS: 80053; 80061; 84403; 84436; 84443; 85025

== ENCOUNTER → 2021-05-03 07:02 | Outpatient (CLI) | payer BC, MEDICAID, SELFPAY ==
--- NOTE | 2021-05-03 07:03 | CT_ITS ---
PROCEDURE: CT ABDOMEN PELVIS WO CON CLINICAL INDICATION: Abd pain Suspect umbilical hernia COMPARISON: No exams were available for comparison TECHNIQUE: Axial images obtained with sagittal and coronal reformats. All CT scans at the facility use one or more dose reduction, viz: automated exposure control, ma/kV adjustment per patient size (including targeted exams where dose is matched to indication, i.e. head), or iterative reconstruction technique. FINDINGS: Lower thorax: No acute finding ABDOMEN: Liver: No masses or biliary dilatation. Gallbladder: Nondistended. No radio opaque stones. Pancreas: No masses or peripancreatic fluid collections. Spleen: unremarkable Adrenals: unremarkable Kidneys/ureters: The kidneys are normal in size and there are no calculi and no obstructive uropathy ABDOMEN & PELVIS: Stomach bowel: Nondistended. No obvious mass or thickening. The small bowel appears normal. There is a moderate amount scattered stool and gas seen throughout the colon. There is mild diffuse diverticulosis of the lower descending and sigmoid colon, there is no evidence of diverticulitis. Peritoneum: No abnormal fluid collections. No obvious inflammatory changes. No free air. There is a small umbilical hernia containing fat only. Lymph nodes: No enlarged lymph nodes apparent. Vasculature: No evidence of abdominal aortic aneurysm. No retroperitoneal hemorrhage evident. Bones: No acute fracture PELVIS: Reproductive: unremarkable, the prostate is normal in size Bladder: Nondistended. No obvious stones or masses. Appendix: Unremarkable. Normal in caliber and and partially air-filled IMPRESSION: Small umbilical hernia, mild diffuse diverticulosis lower descending and sigmoid colon without diverticulitis Dictated by: Dr. Ezekiel Phillips MD 05/03/2021 07:47 Dr. Ezekiel Phillips MD in [place] 05/03/2021 07:47
== END ==
PROVIDERS: PCP Physician Assistant; Visit Provider Nurse Practitioner Family
DX: R10.9 Unspecified abdominal pain (principal); K46.9 Unspecified abdominal hernia without obstruction or gangrene
CPT/HCPCS: 74176

== ENCOUNTER → 2021-05-17 18:15 | Outpatient (CLI) | payer BC, MEDICAID, SELFPAY ==
[2021-05-17 19:07] LABS: Benzodiazepines Screen,Urine Negative ng/ml (<200)
[2021-05-17 19:08] LABS: Amphetamine/Metha Screen,Urine Negative ng/ml (<1000)
[2021-05-17 19:09] LABS: Barbiturates Screen,Urine Negative ng/ml (<200); Cannabinoid Screen,Urine Negative ng/ml (<50)
[2021-05-17 19:10] LABS: Cocaine Screen,Urine Negative ng/ml (<300)
[2021-05-17 19:11] LABS: Methadone Screen,Urine Negative ng/ml (<300); Phencyclidine Screen,Urine Negative ng/ml (<25)
[2021-05-17 19:12] LABS: Opiate Screen,Urine Negative ng/ml (<300)
== END ==
PROVIDERS: Visit Provider Nurse Practitioner Family
DX: G62.9 Polyneuropathy, unspecified (principal)
CPT/HCPCS: 80305

== ENCOUNTER → 2021-06-25 14:29 | Outpatient (CLI) | payer BC, MEDICAID, SELFPAY ==
--- NOTE | 2021-06-25 14:33 | XR_ITS ---
PROCEDURE: XR ELBOW RT MIN 3V CLINICAL INDICATION: right elbow pain COMPARISON: CR XR ELBOW LT MIN 3V from 02/02/2020 FINDINGS: There is a faint curvilinear calcific density along the medial the coracoid process. This may be related to small spur. Cannot exclude the possibility of an old avulsion injury. No displaced fat pad. No other significant anomalies are evident. IMPRESSION: Small spur versus old avulsion injury at the coracoid process medially Dictated by: Sal Chase MD 06/25/2021 18:59 Sal Chase MD in [place] 06/25/2021 18:59
== END ==
PROVIDERS: PCP Physician Assistant; Visit Provider Orthopaedic Surgery
DX: M25.521 Pain in right elbow (principal)
CPT/HCPCS: 73080

== ENCOUNTER → 2021-07-31 16:38 | Outpatient (CLI) | payer BC, MEDICAID, SELFPAY | PROVIDERS: PCP Physician Assistant; Visit Provider Nurse Practitioner | DX: U07.1 COVID-19 (principal) | CPT/HCPCS: C9803; U0003; U0005 ==

== ENCOUNTER 2021-08-14 07:07 | Emergency (ER) | payer OTHER, BC, MEDICAID, SELFPAY ==
[2021-08-14 07:10] VITALS: BMI 27.1
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
[2021-08-14 07:18] VITALS: BP 152/82; PULSE 92; RESP 17; TEMP 36.6; O2SAT 99; BMI 33.9
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
[2021-08-14 07:50] LABS: Alanine Aminotransferase 19 U/L (12-78); Albumin Level 4.8 g/dl (3.5-5.0); Albumin/Globulin Ratio 1.7 (1.1-1.8); Alkaline Phosphatase 64 U/L (38-126); Amylase 80 U/L (30-110); Anion Gap 8.7 mEq/L (5-15); Aspartate Amino Transferase 37 U/L (17-59); Bilirubin,Total 0.6 mg/dl (0.2-1.3); Blood Urea Nitrogen 21 mg/dl (9-20); Calcium 9.6 mg/dl (8.4-10.2); Carbon Dioxide 33 mmol/L (22.0-30.0); Chloride 99 mmol/L (98-107); Creatinine Clearance Estimated 146 mL/min (50-200); Estimated Glomerular Filt Rate 75 ml/min (>60); GFR (African American) 91 ML/MIN (>60); Globulin 2.9 g/dL (1.3-3.2); Glucose 109 mg/dl (74-100); Lipase 120 U/L (23-300); Potassium 3.7 mmoL/L (3.5-5.1); Sodium 137 mmol/L (136-145); Total Protein,Serum 7.7 g/dl (6.3-8.2)
[2021-08-14 07:56] LABS: C-Reactive Protein 0.9 mg/L (0-4)
[2021-08-14 08:07] LABS: Procalcitonin 0.033 ng/mL (0.0-2.0)
[2021-08-14 08:23] LABS: Microscopic, Urine URINE MICROSCOPIC (MICROSCOPIC)
[2021-08-14 08:25] LABS: Basophils % 0.5 % (0.1-2.0); Eosinophils # 0.1 K/mm3 (0.0-0.4); Eosinophils % 0.6 % (0.1-12.0); Hemoglobin 14.5 g/dL (14.1-18.0); Lymphocytes # 1.2 K/mm3 (0.7-4.5); Mean Corpuscular HGB Conc 33.8 g/dL (31.8-35.4); Mean Corpuscular Hemoglobin 32.2 pg (27.0-31.2); Mean Corpuscular Volume 95.5 fl (80-94); Mean Platelet Volume 8.2 fl (7.4-10.4); Monocytes # 0.3 K/mm3 (0.1-1.0); Monocytes % 4.2 % (1.7-9.3); Neutrophils # 6.3 K/mm3 (1.8-7.8); Neutrophils % 79.5 % (37.0-80.0); Platelet Count 238 K/mm3 (142-424); Red Cell Distribution Width 12.7 % (11.5-17.5)
[2021-08-14 08:26] LABS: Appearance,Urine CLEAR (Clear); Bilirubin,Urine Negative (Negative); Blood, Urine Negative (Negative); Color,Urine YELLOW (Yellow); Glucose,Urine (UA) Negative (Negative); Ketones,Urine Negative (Negative); Leukocyte Esterase,Urine Negative (Negative); Nitrate,Urine Negative (Negative); PH,Urine 6.5 (5.0-8.5); Protein,Urine Negative (Negative); Urobilinogen,Urine 0.2 EU/dl (0.2)
[2021-08-14 08:44] LABS: Mucus,Urine Trace /lpf; Squamous Epithelial Cell,Urine Occasional #/hpf (0-5)
[2021-08-14 08:59] LABS: Erythrocyte Sedimentation Rate 18 mm/hr (0-15)
[2021-08-14 10:00] VITALS: BP 136/74; PULSE 98; RESP 17; TEMP 36.6; O2SAT 98
== END 2021-08-14 10:02 | disposition home or self-care (01) ==
PROVIDERS: Emergency Provider Emergency Medicine; PCP Physician Assistant
DX: S16.1XXA Strain of muscle, fascia and tendon at neck level, initial encounter (principal); S30.1XXA Contusion of abdominal wall, initial encounter; V43.52XA Car driver injured in collision with other type car in traffic accident, initial encounter; Z87.891 Personal history of nicotine dependence; S06.0X0A Concussion without loss of consciousness, initial encounter
CPT/HCPCS: 70450; 71045; 72125; 72170; 73562; 74177; 80053; 81001; 82150; 83690; 84145; 85025; 85651; 86140; 96365; 96375; 99283; Q9967

== ENCOUNTER 2021-08-31 17:50 | Emergency (ER) | payer BC, MEDICAID, SELFPAY ==
[2021-08-31 18:20] VITALS: BP 124/79; PULSE 78; RESP 19; TEMP 37; O2SAT 100; BMI 33.9
[2021-08-31 18:46] VITALS: BP 124/79; PULSE 78; RESP 19; TEMP 37; O2SAT 100
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
== END 2021-08-31 19:03 | disposition home or self-care (01) ==
PROVIDERS: Emergency Provider Nurse Practitioner Family; PCP Physician Assistant
DX: S91.342A Puncture wound with foreign body, left foot, initial encounter (principal); W45.0XXA Nail entering through skin, initial encounter; Y92.019 Unspecified place in single-family (private) house as the place of occurrence of the external cause; Z23 Encounter for immunization
CPT/HCPCS: 90471; 90715; 99202; G0463

== ENCOUNTER → 2021-10-18 16:00 | Outpatient (CLI) | payer BC, MEDICAID, SELFPAY ==
[2021-10-21 22:33] LABS: Neisseria gonorrhoeae, NAA Negative (Negative)
== END ==
PROVIDERS: Visit Provider Physician Assistant
DX: Z11.8 Encounter for screening for other infectious and parasitic diseases (principal); N39.0 Urinary tract infection, site not specified; R39.9 Unspecified symptoms and signs involving the genitourinary system
CPT/HCPCS: 87086; 87491; 87591

== ENCOUNTER → 2022-03-10 16:49 | Outpatient (CLI) | payer BC, MEDICAID, SELFPAY ==
[2022-03-10 16:54] LABS: Microscopic, Urine URINE MICROSCOPIC (MICROSCOPIC)
[2022-03-10 17:34] LABS: Basophils # 0.1 K/mm3 (0-0.2); Basophils % 2.1 % (0.1-2.0); Eosinophils # 0.1 K/mm3 (0.0-0.4); Eosinophils % 1.4 % (0.1-12.0); Hematocrit 41.1 % (42.0-52.0); Hemoglobin 13.3 g/dL (14.1-18.0); Lymphocytes # 1.6 K/mm3 (0.7-4.5); Lymphocytes % 36.8 % (10-50); Mean Corpuscular HGB Conc 32.2 g/dL (31.8-35.4); Mean Corpuscular Hemoglobin 31.3 pg (27.0-31.2); Mean Corpuscular Volume 97.2 fl (80-94); Mean Platelet Volume 8.4 fl (7.4-10.4); Monocytes # 0.3 K/mm3 (0.1-1.0); Monocytes % 7.7 % (1.7-9.3); Neutrophils # 2.2 K/mm3 (1.8-7.8); Neutrophils % 51.9 % (37.0-80.0); Platelet Count 201 K/mm3 (142-424); Red Blood Count 4.23 M/mm3 (4.60-6.20); Red Cell Distribution Width 12.9 % (11.5-17.5); White Blood Count 4.3 K/mm3 (4.8-10.8)
[2022-03-10 18:26] LABS: Appearance,Urine CLEAR (Clear); Bilirubin,Urine Negative (Negative); Blood, Urine Negative (Negative); Color,Urine YELLOW (Yellow); Glucose,Urine (UA) Negative (Negative); Ketones,Urine Negative (Negative); Leukocyte Esterase,Urine Negative (Negative); Nitrate,Urine Negative (Negative); Protein,Urine Negative (Negative)
[2022-03-10 18:39] LABS: Alanine Aminotransferase 18 U/L (12-78); Albumin Level 4.4 g/dl (3.5-5.0); Albumin/Globulin Ratio 1.8 (1.1-1.8); Alkaline Phosphatase 87 U/L (38-126); Anion Gap 9.3 mEq/L (5-15); Aspartate Amino Transferase 32 U/L (17-59); Blood Urea Nitrogen 20 mg/dl (9-20); Calcium 9.2 mg/dl (8.4-10.2); Carbon Dioxide 32 mmol/L (22.0-30.0); Chloride 102 mmol/L (98-107); Chol/HDL Ratio 5.6 (1-3.5); Cholesterol 223 mg/dl (140-200); Estimated Glomerular Filt Rate 83 ml/min (>60); GFR (African American) 101 ML/MIN (>60); Globulin 2.5 g/dL (1.3-3.2); Glucose 98 mg/dl (74-100); HDL Cholesterol 40 mg/dl (40-60); Potassium 4.3 mmoL/L (3.5-5.1); Sodium 139 mmol/L (136-145); Total Protein,Serum 6.9 g/dl (6.3-8.2); Triglycerides 303 mg/dl (30-150); VLDL Cholesterol 61 mg/dL (0-40)
[2022-03-10 18:45] LABS: Bacteria,Urine Trace /lpf; RBC,Urine Occasional #/hpf (0-3); Squamous Epithelial Cell,Urine Occasional #/hpf (0-5); WBC,Urine Occasional #/hpf (0-3)
[2022-03-10 18:46] LABS: Bilirubin,Total 0.1 mg/dl (0.2-1.3)
[2022-03-10 18:56] LABS: 25-OH Vitamin D, Total 40.2 ng/mL (30-100)
[2022-03-10 19:09] LABS: Prostate Specific Ag Screen 0.5 ng/ml (0.0-4.0); Thyroid Stimulating Hormone 3.97 uIU/mL (0.465-4.68)
[2022-03-12 11:19] LABS: Direct LDL Cholesterol 141 mg/dL (100-129)
== END ==
PROVIDERS: PCP Physician Assistant; Visit Provider Physician Assistant
DX: Z00.00 Encounter for general adult medical examination without abnormal findings (principal); R39.9 Unspecified symptoms and signs involving the genitourinary system; Z12.5 Encounter for screening for malignant neoplasm of prostate
CPT/HCPCS: 36415; 80053; 80061; 81001; 82306; 82728; 83540; 83550; 84443; 85025; 87086; 87491; 87591; G0103

== ENCOUNTER → 2022-03-13 16:38 | Outpatient (CLI) | payer BC, MEDICAID, SELFPAY ==
[2022-03-12 09:32] LABS: Iron 90 ug/dL (49-181)
[2022-03-12 09:41] LABS: Total Iron Binding Capacity 308 ug/dL (261-462)
[2022-03-12 10:08] LABS: Ferritin 45.5 ng/ml (17.9-464)
[2022-03-17 21:08] LABS: Neisseria gonorrhoeae, NAA Negative (Negative)
== END ==
PROVIDERS: PCP Physician Assistant; Visit Provider Physician Assistant
DX: D64.9 Anemia, unspecified (principal)
CPT/HCPCS: 82728; 83540; 83550; 87491; 87591

== ENCOUNTER → 2022-06-30 06:09 | Outpatient (CLI) | payer OTHER, MEDICAID, SELFPAY | PROVIDERS: Visit Provider Nurse Practitioner Family | DX: B35.1 Tinea unguium (principal) | CPT/HCPCS: 87102; 87206; 87220 ==

== ENCOUNTER → 2022-07-21 13:51 | Outpatient (CLI) | payer OTHER, MEDICAID, SELFPAY ==
[2022-07-23 08:22] LABS: Testosterone,Total 438 ng/dL (264-916)
== END ==
PROVIDERS: PCP Physician Assistant; Visit Provider Physician Assistant
DX: G62.9 Polyneuropathy, unspecified (principal); N52.9 Male erectile dysfunction, unspecified
CPT/HCPCS: 36415; 84403

== ENCOUNTER → 2022-08-29 15:04 | Outpatient (CLI) | payer OTHER, MEDICAID, SELFPAY ==
--- NOTE | 2022-08-29 15:05 | US_ITS ---
FINAL REPORT TECHNIQUE: Ultrasound images of the testicles were obtained bilaterally. Color Doppler images were obtained. CLINICAL HISTORY: .pain and swelling COMPARISON: None FINDINGS: The testicles are normal in size and echotexture bilaterally. Arterial flow is identified bilaterally. No intratesticular masses are identified. IMPRESSION: No evidence of testicular mass or torsion. Reviewed, Interpreted and Dictated by Homero Cavazos III, MD Transcribed by Cris Cam Authenticated and [facility]
== END ==
PROVIDERS: PCP Physician Assistant; Visit Provider Physician Assistant
DX: N50.811 Right testicular pain (principal); N50.812 Left testicular pain; N50.89 Other specified disorders of the male genital organs
CPT/HCPCS: 76870

== ENCOUNTER → 2022-09-12 13:01 | Outpatient (CLI) | payer OTHER, MEDICAID, SELFPAY ==
--- NOTE | 2022-09-12 13:06 | XR_ITS ---
FINAL REPORT CLINICAL HISTORY: shoulder pain 5-6 years ago FINDINGS: Internal and external rotation views of the left shoulder were obtained. There is no prior exam for comparison. There is no fracture or dislocation. The joint space is preserved. Soft tissues are normal. IMPRESSION: No acute osseous abnormality of the left shoulder. Reviewed, Interpreted and Dictated by Jazzmine Alexandra MD Transcribed by Madison Canada Authenticated and [facility]
== END ==
PROVIDERS: PCP Physician Assistant; Visit Provider Orthopaedic Surgery
DX: M25.512 Pain in left shoulder (principal)
CPT/HCPCS: 73030

== ENCOUNTER → 2023-06-23 09:03 | Outpatient (CLI) | payer OTHER, SELFPAY | PROVIDERS: PCP Physician Assistant; Visit Provider Physician Assistant | DX: R53.83 Other fatigue (principal) | CPT/HCPCS: 95806 ==

== ENCOUNTER → 2023-06-23 16:48 | Outpatient (CLI) | payer OTHER, SELFPAY ==
[2023-06-23 16:55] LABS: Microscopic, Urine URINE MICROSCOPIC (MICROSCOPIC)
[2023-06-23 17:55] LABS: Appearance,Urine CLEAR (Clear); Bilirubin,Urine Negative (Negative); Blood, Urine Negative (Negative); Color,Urine YELLOW (Yellow); Glucose,Urine (UA) Negative (Negative); Ketones,Urine Negative (Negative); Leukocyte Esterase,Urine Negative (Negative); Nitrate,Urine Negative (Negative); PH,Urine 7.5 (5.0-8.5); Protein,Urine Negative (Negative); Urobilinogen,Urine 0.2 EU/dl (0.2)
[2023-06-23 18:00] LABS: Squamous Epithelial Cell,Urine Occasional #/hpf (0-5)
== END ==
PROVIDERS: PCP Physician Assistant; Visit Provider Physician Assistant
DX: R30.0 Dysuria (principal)
CPT/HCPCS: 81001

== ENCOUNTER 2023-07-28 07:34 | Outpatient (CLI) | payer OTHER, SELFPAY ==
[2023-07-28 23:38] LABS: Amphetamine/Metha Screen,Urine Negative ng/ml (<1000); Barbiturates Screen,Urine Negative ng/ml (<200); Benzodiazepines Screen,Urine Positive ng/ml (<200); Cannabinoid Screen,Urine Negative ng/ml (<50); Cocaine Screen,Urine Negative ng/ml (<300); Methadone Screen,Urine Negative ng/ml (<300); Opiate Screen,Urine Negative ng/ml (<300); Phencyclidine Screen,Urine Negative ng/ml (<25)
== END 2023-07-28 23:59 ==
LOC: LAB.DROPOF 07-29 07:34
PROVIDERS: PCP Physician Assistant; Visit Provider Physician Assistant
DX: F41.9 Anxiety disorder, unspecified (principal); G62.9 Polyneuropathy, unspecified
CPT/HCPCS: 80307

== ENCOUNTER 2023-12-07 15:03 | Outpatient (POV) | payer OTHER, SELFPAY ==
[2023-12-07 15:20] VITALS: PULSE 85; RESP 18; TEMP 36.7; O2SAT 98; BMI 32.6
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
== END 2023-12-07 23:59 | disposition home or self-care (01) ==
PROVIDERS: PCP Physician Assistant; Visit Provider Nurse Practitioner Family
DX: M54.50 Low back pain, unspecified (principal); G89.29 Other chronic pain; M54.16 Radiculopathy, lumbar region
CPT/HCPCS: 99202; G0463

== ENCOUNTER 2023-12-25 16:28 | Outpatient (CLI) | payer OTHER, SELFPAY ==
--- NOTE | 2023-12-25 16:28 | MR_ITS ---
PROCEDURE INFORMATION: Exam: MR Right Upper Extremity Joint Without Contrast; Shoulder Exam date and time: 12/25/2023 5:33 PM Age: 38 years old Clinical indication: Pain; Shoulder; Right; Additional info: Right shoulder pain TECHNIQUE: Imaging protocol: Magnetic resonance imaging of the right upper extremity without contrast. Exam focused on the shoulder. COMPARISON: 1. CT CERVICAL SPINE WO CON 08/14/2021 7:28 AM 2. CR XR CHEST AP 08/14/2021 7:41 AM 3. CR XR ELBOW RT MIN 3V 06/25/2021 3:07 PM FINDINGS: Bones/joints: There are degenerative changes of the acromioclavicular joint. Glenoid labrum: Unremarkable. No evidence of tear. Supraspinatus tendon: There is partial-thickness tearing at the supraspinatus attachment along the bursal surface without evidence for retraction. Infraspinatus tendon: Unremarkable. No evidence of tear. Subscapularis tendon: There is moderate thickening and increased T2 signal at the subscapularis attachment. Teres minor tendon: Unremarkable. No evidence of tear. Tendon of biceps brachii: There is thickening of the biceps tendon with peritendinous fluid consistent with some element of underlying tendinopathy. Glenohumeral ligaments: Unremarkable. Soft tissues: Unremarkable. IMPRESSION: 1. Partial-thickness tearing at the supraspinatus attachment along the bursal surface without retraction. 2. Tendinopathy at the supraspinatus attachment. 3. Mild biceps tendinopathy.
--- NOTE | 2023-12-25 16:28 | MR_ITS ---
PROCEDURE INFORMATION: Exam: MR Left Upper Extremity Joint Without Contrast; Shoulder Exam date and time: 12/25/2023 5:01 PM Age: 38 years old Clinical indication: Pain; Shoulder; Left; Additional info: Left shoulder pain TECHNIQUE: Imaging protocol: Magnetic resonance imaging of the left upper extremity without contrast. Exam focused on the shoulder. COMPARISON: 1. CR XR SHOULDER LT MIN 2V 09/12/2022 1:[address] CERVICAL SPINE WO CON 08/14/2021 7:28 AM 3. CR XR CHEST AP 08/14/2021 7:41 AM FINDINGS: Bones/joints: There is moderate acromioclavicular osteoarthritis. Glenoid labrum: Unremarkable. No evidence of tear. Supraspinatus tendon: There is moderate supraspinatus tendinopathy with increased T2 signal along the undersurface attachment (image 13 series 9) consistent with partial-thickness tearing. Infraspinatus tendon: Unremarkable. No evidence of tear. Subscapularis tendon: Unremarkable. No evidence of tear. Teres minor tendon: Unremarkable. No evidence of tear. Tendon of biceps brachii: Unremarkable. No evidence of tear. Glenohumeral ligaments: Unremarkable. Soft tissues: Unremarkable. IMPRESSION: 1. Moderate supraspinatus tendinopathy with partial-thickness undersurface tearing. 2. Moderate acromioclavicular osteoarthritis.
== END 2023-12-25 23:59 | disposition home or self-care (01) ==
LOC: RAD 16:28
PROVIDERS: PCP Physician Assistant; Visit Provider Physician Assistant
DX: M25.512 Pain in left shoulder (principal); M25.511 Pain in right shoulder
CPT/HCPCS: 73221

== ENCOUNTER 2023-12-29 09:25 | Outpatient (CLI) | payer OTHER, SELFPAY ==
[2023-12-29 16:05] LABS: Basophils % 0.4 % (0.1-2.0); Eosinophils # 0.1 K/mm3 (0.0-0.4); Eosinophils % 1.1 % (0.1-12.0); Hematocrit 46.1 % (42.0-52.0); Hemoglobin 15.7 g/dL (14.1-18.0); Lymphocytes # 1.6 K/mm3 (0.7-4.5); Lymphocytes % 23.5 % (10-50); Mean Corpuscular Hemoglobin 32.2 pg (27.0-31.2); Mean Corpuscular Volume 94.8 fl (80-94); Mean Platelet Volume 8.3 fl (7.4-10.4); Monocytes # 0.4 K/mm3 (0.1-1.0); Monocytes % 5.8 % (1.7-9.3); Neutrophils # 4.6 K/mm3 (1.8-7.8); Neutrophils % 69.2 % (37.0-80.0); Platelet Count 218 K/mm3 (142-424); Red Blood Count 4.87 M/mm3 (4.60-6.20); Red Cell Distribution Width 13.4 % (11.5-17.5); White Blood Count 6.7 K/mm3 (4.8-10.8)
[2023-12-29 16:22] LABS: Alanine Aminotransferase 28 U/L (12-78); Albumin Level 4.5 g/dl (3.5-5.0); Albumin/Globulin Ratio 1.7 (1.1-1.8); Alkaline Phosphatase 50 U/L (38-126); Anion Gap 11.4 mEq/L (5-15); Aspartate Amino Transferase 44 U/L (17-59); Bilirubin,Total 0.5 mg/dl (0.2-1.3); Blood Urea Nitrogen 18 mg/dl (9-20); Calcium 9.8 mg/dl (8.4-10.2); Carbon Dioxide 36 mmol/L (22.0-30.0); Chloride 96 mmol/L (98-107); Chol/HDL Ratio 5.5 (1-3.5); Cholesterol 224 mg/dl (140-200); Estimated Glomerular Filt Rate 56 ml/min (>60); GFR (African American) 68 ML/MIN (>60); Globulin 2.6 g/dL (1.3-3.2); Glucose 76 mg/dl (74-100); HDL Cholesterol 41 mg/dl (40-60); Potassium 4.4 mmoL/L (3.5-5.1); Sodium 139 mmol/L (136-145); Total Protein,Serum 7.1 g/dl (6.3-8.2); Triglycerides 168 mg/dl (30-150); VLDL Cholesterol 34 mg/dL (0-40)
[2023-12-29 16:33] LABS: Direct LDL Cholesterol 141.72 mg/dL (100-129)
[2023-12-29 16:39] LABS: Free T4 (Free Thyroxine) 0.75 ng/dl (0.78-2.19)
[2024-01-03 21:10] LABS: Estrogen 92 pg/mL (56-213)
[2024-01-05 22:11] LABS: Testosterone,Free 14.3 pg/mL (6.8-21.5)
== END 2023-12-29 23:59 | disposition home or self-care (01) ==
LOC: LAB.DROPOF 12-31 09:27
PROVIDERS: PCP Physician Assistant; Visit Provider Physician Assistant
DX: N53.9 Unspecified male sexual dysfunction (principal); E78.5 Hyperlipidemia, unspecified; R53.83 Other fatigue; E03.9 Hypothyroidism, unspecified
CPT/HCPCS: 36415; 80050; 80053; 80061; 82672; 84402; 84439; 84443; 85025

== ENCOUNTER 2023-12-29 14:00 | Day surgery (SDC) | payer OTHER, SELFPAY ==
[2023-12-29 14:25] VITALS: BP 131/77; PULSE 81; RESP 18; TEMP 36.7; O2SAT 99; BMI 32.5
--- NOTE | 2023-12-29 14:37 | EXP.PAIN.PRO ---
Procedure Date: 12/29/23 Time: 14:30 Anesthesiologist:: William Urrutia CRNA Complications:: None Pre-procedure Diagnosis:: Degenerative disc lumbar spine multilevels. Lumbar radiculopathy. Post-procedure Diagnosis:: Same. Indications for Procedure:: Patient is a very pleasant 38-year-old male comes our clinic today for lumbar epidural steroid injection. Patient reports low back pain as well as bilateral hip and leg radicular symptoms. He rates his pain 7/10. He describes pain as constant, dull, aching as well as numbness in the legs. Procedure Details:: Procedure: Lumbar epidural steroid injection under fluoroscopy Informed consent was obtained and the risks and benefits of the procedure were explained to the patient. The patient was taken to the procedure room and noninvasive monitors placed, including noninvasive blood pressure cuff and pulse oximeter. The back was viewed using C-arm Fluoroscopy and prepped using Chloraprep as a cleansing solution and the L4-L5 interspace was palpated. Skin and subcutaneous tissues were anesthetized using lidocaine 1.5% and a 25-gauge needle. After this, an 18-gauge Touhy epidural needle was placed into the L4-L5 interspace and advanced using fluoroscopic guidance and loss of resistance to air until the epidural space was encountered. After confirmation of needle placement in the epidural space, with dye, a solution containing normal saline, 3 mL and Depo-Medrol 80 mg were incrementally injected into the lumbar epidural space. The patient tolerated the procedure well with no complications. The patient was observed in the Pain Clinic and then discharged home neurologically intact. Plan and Disposition:: She was discharged without incident.
[2023-12-29 14:40] VITALS: BP 146/75; PULSE 68; RESP 18; O2SAT 98
[2023-12-29 14:46] VITALS: BP 121/68; PULSE 76; RESP 18; O2SAT 97
[2023-12-29] MEDS: methylPREDNISolone ACETATE 80MG/ML VIAL 80 MG (14:46)
[2023-12-29 14:47] VITALS: BP 121/68; PULSE 76; RESP 18; O2SAT 97
--- NOTE | 2023-12-29 15:19 | ECG_ITS ---
APPROVED REPORT Exam: Resting ECG HR:72 bpm ECG Measurements Heart Rate 72 AXES OH 156 P 59 QRSd 93 QRS 60 QT 342 T 46 QTc 367 Conclusion SINUS RHYTHM NORMAL ECG UNCONFIRMED REPORT Electronically signed by : Masood Metcalf MD 12/29/2023 17:27:39
== END 2023-12-29 14:40 | disposition home or self-care (01) ==
PROVIDERS: PCP Physician Assistant; Visit Provider Nurse Anesthetist, Certified Registered
DX: M51.16 Intervertebral disc disorders with radiculopathy, lumbar region (principal)
CPT/HCPCS: 62323; 93005; J1010

== ENCOUNTER 2024-03-01 14:51 | Outpatient (CLI) | payer OTHER, SELFPAY ==
--- NOTE | 2024-03-01 15:03 | XR_ITS ---
FINAL REPORT CLINICAL HISTORY: Shoulder Pain FINDINGS: Left shoulder Two views were obtained. There is no acute fracture or dislocation. There is mild widening of the AC joint which is nonspecific, mild AC separation is not excluded. No soft tissue abnormality is identified. IMPRESSION: Possible mild AC separation. Reviewed, Interpreted and Dictated by Homero Cavazos III, MD Transcribed by Madison Canada Authenticated and [facility]
--- NOTE | 2024-03-01 15:03 | XR_ITS ---
FINAL REPORT CLINICAL HISTORY: Shoulder Pain FINDINGS: Right shoulder Two views were obtained. There is no acute fracture or dislocation. The joint spaces appear normal. No soft tissue abnormality is identified. IMPRESSION: No acute process. Reviewed, Interpreted and Dictated by Homero Cavazos III, MD Transcribed by Madison Canada Authenticated and [facility]
== END 2024-03-01 23:59 | disposition home or self-care (01) ==
LOC: RAD 14:52
PROVIDERS: PCP Physician Assistant; Visit Provider Physician Assistant
DX: M25.511 Pain in right shoulder (principal); M25.512 Pain in left shoulder; G89.29 Other chronic pain
CPT/HCPCS: 73030

== ENCOUNTER 2024-06-03 15:55 | Outpatient (CLI) | payer OTHER, SELFPAY ==
[2024-06-08 08:21] LABS: HSV-1 DNA Negative (Negative); HSV-2 DNA Negative (Negative)
== END 2024-06-03 23:59 | disposition home or self-care (01) ==
LOC: LAB 15:56
PROVIDERS: PCP Family Medicine; Visit Provider Family Medicine
DX: N48.9 Disorder of penis, unspecified (principal)
CPT/HCPCS: 36415; 87529

== ENCOUNTER 2024-06-14 16:45 | Outpatient (CLI) | payer OTHER, SELFPAY ==
[2024-06-14 18:18] LABS: HIV (1&2) Antibody Rapid NONREACTIVE (NONREACTIVE)
[2024-06-15 12:20] LABS: Rapid Plasma Reagin Ab Titer Non Reactive titer (NonRea<1:1)
[2024-06-15 22:08] LABS: Neisseria gonorrhoeae, NAA Negative (Negative)
[2024-06-17 00:08] LABS: HBsAg Screen Negative (Negative); HCV Ab Reactive (Non Reactive); Hep A Ab, IGM Negative (Negative); Hep B Core Ab, IgM Negative (Negative)
== END 2024-06-14 23:59 | disposition home or self-care (01) ==
LOC: LAB 16:45
PROVIDERS: PCP Family Medicine; Visit Provider Internal Medicine
DX: N48.9 Disorder of penis, unspecified (principal)
CPT/HCPCS: 80074; 86593; 87389; 87491; 87591

== ENCOUNTER 2024-08-08 13:00 | Outpatient (CLI) | payer OTHER, SELFPAY ==
[2024-08-11 08:17] LABS: HSV-1 DNA Negative (Negative); HSV-2 DNA Negative (Negative)
== END 2024-08-08 23:59 | disposition home or self-care (01) ==
LOC: LAB.DROPOF 08-09 13:23
PROVIDERS: PCP Urology; Visit Provider Urology
DX: N48.9 Disorder of penis, unspecified (principal)
CPT/HCPCS: 87491; 87529; 87563; 87591; 87661

== ENCOUNTER 2024-08-10 14:55 | Outpatient (CLI) | payer OTHER, SELFPAY ==
--- NOTE | 2024-08-10 14:56 | US_ITS ---
FINAL REPORT TECHNIQUE: Ultrasound images of the kidneys were obtained. CLINICAL HISTORY: Urinary frequency COMPARISON: None FINDINGS: RENAL ULTRASOUND Limited images of the liver parenchyma demonstrate normal echogenicity. The right kidney measures 10.8 cm in length. It is normal echogenicity. There is no hydronephrosis. The left kidney measures 11.5 cm in length. It is normal echogenicity. There is no hydronephrosis. There is an incidental finding of mild splenomegaly. IMPRESSION: Normal renal ultrasound. Splenomegaly. Reviewed, Interpreted and Dictated by Pablo Saravia MD Transcribed by Adrianne Weathers Authenticated and [facility]
--- NOTE | 2024-08-10 14:56 | US_ITS ---
FINAL REPORT TECHNIQUE: Sonographic images of the urinary bladder were obtained. CLINICAL HISTORY: Urinary frequency COMPARISON: None FINDINGS: ULTRASOUND BLADDER WITH POST VOID RESIDUAL Bladder volumes were estimated based on 3 dimensional measurements, pre- and postvoid. Prevoid bladder volume: 265.6 mls Postvoid bladder volume: 27.3 mls IMPRESSION: Estimated bladder volumes as above with small postvoid residual. Reviewed, Interpreted and Dictated by Pablo Saravia MD Transcribed by Adrianne Weathers Authenticated and [facility]
== END 2024-08-10 23:59 | disposition home or self-care (01) ==
LOC: RAD 14:56
PROVIDERS: PCP Family Medicine; Visit Provider Urology
DX: N28.9 Disorder of kidney and ureter, unspecified (principal)
CPT/HCPCS: 76770; 76857

== ENCOUNTER 2024-09-18 03:50 | Emergency (ER) | payer OTHER, SELFPAY ==
[2024-09-18 03:50] VITALS: BP 158/112; PULSE 112; RESP 18; TEMP 37.3; O2SAT 95; BMI 33.9
--- NOTE | 2024-09-18 03:59 | ED_ITS ---
Discharge Plan Disposition Patient Disposition: Home, Self-Care Prescriptions Prescriptions: No Action fluticasone propionate [Flonase Allergy Relief] 50 mcg/actuation spray,suspension 1 spray intranasal BID PRN (Reason: cold symptoms) Qty: 16 0RF Rx Instructions: administer into each nostril cetirizine [All Day Allergy (cetirizine)] 10 mg tablet 10 mg PO DAILY PRN (Reason: allergy symptoms) Qty: 30 0RF sildenafil [Viagra] 100 mg tablet 100 mg PO DAILY 30 Days Qty: 10 6RF clonazepam [Klonopin] 0.5 mg tablet 0.5 mg PO DAILY PRN (Reason: severe anxiety) Qty: 20 0RF gabapentin 800 mg tablet 800 mg PO TID Qty: 90 2RF ibuprofen 800 mg tablet 800 mg PO Q8H PRN (Reason: pain) Qty: 90 2RF quetiapine [Seroquel] 50 mg tablet 50 mg PO HS Qty: 90 1RF buprenorphine-naloxone 1 EACH tablet, sublingual 1 each SL BID Referrals Follow up/Referrals: Provider,Referral, MD [Primary Care Provider] - See instructions Activity Restrictions/Add. Instructions Additional Instructions/Restrictions: Please follow-up with your primary care provider. Please return to the emergency department if you develop any new or worsening symptoms or become concerned for your health. Clinical Impressions Clinical Impression: Seizure-like activity Instructions Patient Instructions: DI for Seizure Disorder -- Adult, DI for Seizure (Not Epilepsy/Seizure Disorder), DI for Seizure Disorder -- Child Print Language Print Language: Somali Discharge ED Provider: Cody Almeida Adult HPI General Chief complaint: Seizure Stated complaint: No comlaints Time Seen by Provider: 09/18/24 03:55 History of Present Illness HPI narrative: 39-year-old male with history of sleep apnea presents for seizure-like activity. History obtained from patient, significant other, EMS. The girlfriend reports that she heard the patient yell in a strange way, and was trying to walk and move but was not coherent and was having difficulty with organized movement. He went into the bathroom and on the ground began stiffening up and not breathing. This lasted for approximately 3 to 5 minutes according to girlfriend. She noticed some blood in his nose and mouth. After the patient woke up he was groggy for quite some time. Patient reports that he has no idea what happened and does not remember the event. He reports that he has constant walking before. He denies any drug use. He denies any previous seizure-like activity, denies any recent neurologic symptoms or current neurologic symptoms. He is asymptomatic at this time. Related Data Home Medications ?Medication ?Instructions ?Recorded ?Confirmed buprenorphine 8 mg-naloxone 2 mg 1 each sublingual BID drug abuse 07/23/20 08/29/24 sublingual tablet Previous Rx's ?Medication ?Instructions ?Recorded cetirizine 10 mg tablet (All Day 10 mg PO DAILY PRN allergy 08/10/24 Allergy (cetirizine)) symptoms #30 tabs fluticasone propionate 50 1 spray intranasal BID PRN cold 08/10/24 mcg/actuation nasal symptoms #16 grams spray,suspension (Flonase Allergy Relief) clonazepam 0.5 mg tablet (Klonopin) 0.5 mg PO DAILY PRN severe anxiety 08/23/24 #20 tabs gabapentin 800 mg tablet 800 mg PO TID Pain #90 tabs 08/23/24 ibuprofen 800 mg tablet 800 mg PO Q8H PRN pain #90 tabs 08/23/24 quetiapine 50 mg tablet (Seroquel) 50 mg PO HS #90 tabs 08/23/24 sildenafil 100 mg tablet (Viagra) 100 mg PO DAILY 30 days #10 tabs 08/29/24 Allergies Allergy/AdvReac Type Severity Reaction Status Date / Time No Known Allergies Allergy Verified 08/29/24 11:25 [facility] Disclaimer: The information contained in this section may have been updated after the patient was seen, as this information can be updated by other users. Medical History Hepatitis C Penile abnormality Cubital tunnel syndrome Prostatitis Periungual pain of left foot AC joint arthropathy Male sexual dysfunction Increased urinary frequency Carpal tunnel syndrome Neuropathy Back Pain Anxiety Surgical History History of carpal tunnel surgery Family History Other Alcoholism Coronary artery disease Heart attack Social History Smoking Status: Current every day smoker tobacco type: e-cigarettes second hand exposure: No alcohol intake: never substance use type: former substance user and heroin current occupational status: other Travel in the last 8 weeks: None household members: significant other housing: house marital status: single Have you lived/traveled outside US in past 30 days?: No Contact w/someone who lives/traveled outside US past 30 days?: No Exposure to someone with infectious disease in past 14 days?: No Do you have a fever (greater than 100.4 F or 38 C)?: No Have you tested positive for COVID-19: No Exposed to someone with COVID-19 in past 14 days?: No Do you have a sore throat?: No Do you have a cough?: No Do you have any weakness?: No Do you have any diarrhea?: No Are you experiencing any unusual bleeding?: No Do you have any muscle aches/pain?: No Do you have any abdominal pain?: No Are you experiencing loss of taste or smell?: No Other Medical History Have you received the Flu Vaccine for this season: No Have you received the Pneumonia Vaccine: No ROS Obtained: Yes All systems reviewed & no additional complaints except as documented Physical Exam General General appearance: alert and in no apparent distress Head Head exam: atraumatic and normocephalic Eye Eye exam: Present normal appearance, PERRL and EOMI ENT ENT exam: Present normal external ear exam and other (Bite chelsea on the left side of the tongue) Neck Neck exam: Present normal inspection and full ROM Chest Chest inspection: Present normal inspection and symmetric chest wall rise; Absent tenderness Respiratory Respiratory exam: Present normal lung sounds bilaterally; Absent respiratory distress Cardiovascular Cardiovascular exam: Present regular rate and normal rhythm Abdominal Exam Abdominal exam: Present soft; Absent distention, tenderness or guarding Extremities Exam Extremities exam: Present normal inspection; Absent edema or joint swelling Back Exam Back exam: Present normal inspection; Absent tenderness Neurological Exam Neurological exam: Present alert and oriented X3; Absent motor sensory deficit Psychiatric Psychiatric exam: Present normal affect and normal mood Skin Skin exam: Present warm, dry and normal color Lymphatic Lymphatic Findings: no adenopathy Medical Decision Making Medical Records Medical records reviewed: Yes I reviewed the patient's medical records. Screening: Per USPSTF and CDC recommendations, given the prevalence of disease in our region, it is our hospital?s policy to screen for HIV and viral Hepatitis for all patients aged 18 and over and those with ongoing risk factors. Dario Inquiry Pt receiving controlled substance: No Dario was queried for this patient: No Vital Signs: 09/18/24 03:50 Temperature 99.2 F Temperature Source Oral Pulse Rate [Right Radial] 112 H Respiratory Rate 18 Blood Pressure [Right Arm] 158/112 H Blood Pressure Mean [Right Arm] 127 Blood Pressure Source [Right Arm] Automatic Cuff Blood Pressure Position [Right Arm] Supine 02 Sat by Pulse Oximetry 95 Oxygen Delivery Method Room Air Lab Data Lab results reviewed: Yes I reviewed the patient's lab results. Lab Results 09/18/24 04:00: WBC 5.0, RBC 5.12, Hgb 16.3, Hct 45.7, MCV 89.3, MCH 31.8 H, M CHC 35.7 H, RDW 11.7, Plt Count 193, MPV 9.9, Neut % (Auto) 52.4, Lymph % (Auto) 38.4, [place] % (Auto) 5.4, Eos % (Auto) 2.8, Baso % (Auto) 0.4, Neut # (Auto) 2.6, Lymph # (Auto) 1.9, Walworth # (Auto) 0.3, Eos # (Auto) 0.1, Baso # (Auto) 0.0, Sodium 139, Potassium 3.9, Chloride 101, Carbon Dioxide 28, Anion Gap 13.9, BUN 17, Creatinine 1.20, Estimated Creat Clear 130, Estimated GFR 67, Est GFR ( Amer) 81, Glucose 120 H, Calcium 9.4, Magnesium 2.0, Total Bilirubin 0.6, AST 51, ALT 42, Alkaline Phosphatase 51, Total Protein 7.3, Albumin 4.7, Globulin 2.6, Albumin/Globulin Ratio 1.8 09/18/24 04:00 09/18/24 04:00 Orders (Tests/Meds): ORDERS Category Date Time Status CBC w/Auto Diff [Complete Blood Count Auto Diff] Stat Lab 09/18/24 04:00 Completed CMP [Comprehensive Metabolic Panel] Stat Lab 09/18/24 04:00 Completed Magnesium Stat Lab 09/18/24 04:00 Completed Medical Decision Narrative: 39-year-old male with history of sleep apnea presents for possible seizure-like activity. History was obtained via interactive discussion with patient, significant other, EMS, chart review. On arrival, patient is [afebrile, hemodynamically stable, satting appropriately, alert, oriented x4, GCS 15], moving all extremities spontaneously. Full physical exam performed and significant for bite chelsea on the left lateral tongue, otherwise no acute findings. Differential includes but is not limited to syncope, seizure, intoxication, withdrawal, sleepwalking, night terrors. Workup initiated including CBC CMP. On re-evaluation, patient [remains afebrile, HD stable.] Laboratory workup independently interpreted by me and significant for no significant abnormalities. CT imaging was considered, but deemed unnecessary due to no neurologic deficits on exam, no history of neurologic symptom, no significant trauma. Given patient history, exam and workup, patient's presentation most likely represents seizure-like activity. The underlying etiology of patient's symptoms are not clear at this time, whether this is syncope, seizure, drug related etc. The history is provided by the girlfriend has some aspects that seem consistent with seizure, but other aspects do not. Patient has no history of epilepsy or seizure-like activity. Patient denies drug use but does have substance use listed in his chart and there was marijuana noted to be on scene by EMS. This certainly could be drug related. I had an interactive discussion with patient regarding his presentation. Given this is his first episode and the circumstances surrounding the episode are unclear, I do not think that patient requires CT imaging or further evaluation at this time. Patient was discharged in stable condition with strict return precautions. Procedures Risk/Benefits of Procedure(s) Were Explained: Yes Critical Care Critical Care Time Critical Care Time: No
[2024-09-18 04:12] LABS: Basophils % 0.4 % (0.1-2.0); Eosinophils # 0.1 K/mm3 (0.0-0.4); Eosinophils % 2.8 % (0.1-12.0); Hematocrit 45.7 % (42.0-52.0); Hemoglobin 16.3 g/dL (14.1-18.0); Lymphocytes # 1.9 K/mm3 (0.7-4.5); Lymphocytes % 38.4 % (10-50); Mean Corpuscular HGB Conc 35.7 g/dL (31.8-35.4); Mean Corpuscular Hemoglobin 31.8 pg (27.0-31.2); Mean Corpuscular Volume 89.3 fl (80-94); Mean Platelet Volume 9.9 fl (7.4-10.4); Monocytes # 0.3 K/mm3 (0.1-1.0); Monocytes % 5.4 % (1.7-9.3); Neutrophils # 2.6 K/mm3 (1.8-7.8); Neutrophils % 52.4 % (37.0-80.0); Platelet Count 193 K/mm3 (142-424); Red Blood Count 5.12 M/mm3 (4.60-6.20); Red Cell Distribution Width 11.7 % (11.5-17.5)
[2024-09-18 04:13] LABS: Albumin Level 4.7 g/dl (3.5-5.0); Chloride 101 mmol/L (98-107)
[2024-09-18 04:14] LABS: Potassium 3.9 mmoL/L (3.5-5.1); Sodium 139 mmol/L (136-145)
[2024-09-18 04:16] LABS: Alanine Aminotransferase 42 U/L (12-78); Aspartate Amino Transferase 51 U/L (17-59); Blood Urea Nitrogen 17 mg/dl (9-20); Creatinine Clearance Estimated 130 mL/min (50-200); Estimated Glomerular Filt Rate 67 ml/min (>60); GFR (African American) 81 ML/MIN (>60)
[2024-09-18 04:17] LABS: Albumin/Globulin Ratio 1.8 (1.1-1.8); Alkaline Phosphatase 51 U/L (38-126); Anion Gap 13.9 mEq/L (5-15); Bilirubin,Total 0.6 mg/dl (0.2-1.3); Calcium 9.4 mg/dl (8.4-10.2); Carbon Dioxide 28 mmol/L (22.0-30.0); Globulin 2.6 g/dL (1.3-3.2); Glucose 120 mg/dl (74-100); Total Protein,Serum 7.3 g/dl (6.3-8.2)
[2024-09-18 04:38] VITALS: BP 135/83; PULSE 99; RESP 17; TEMP 36.7; O2SAT 99
== END 2024-09-18 04:39 | disposition home or self-care (01) ==
PROVIDERS: Emergency Provider Emergency Medicine
DX: R56.9 Unspecified convulsions (principal)
CPT/HCPCS: 80053; 83735; 85025; 99283

== ENCOUNTER 2025-01-26 17:17 | Outpatient (CLI) | payer OTHER, SELFPAY ==
--- NOTE | 2025-01-26 17:15 | MR_ITS ---
PROCEDURE INFORMATION: Exam: MR Head Without Contrast Exam date and time: 01/26/2025 5:17 PM Age: 39 years old Clinical indication: HX of seizure twice since aug 2024 TECHNIQUE: Imaging protocol: Magnetic resonance imaging of the head without contrast. COMPARISON: CT HEAD/BRAIN WO CON 08/14/2021 7:24 AM FINDINGS: Brain: No acute infarct. No hemorrhage. No significant white matter disease. No edema. Dilated perivascular space on the left. Cerebral ventricles: Normal. No ventriculomegaly. Bones: Unremarkable. Paranasal sinuses: Normal as visualized. No acute sinusitis. Mastoid air cells: Normal as visualized. No mastoid effusion. Orbital cavities: Unremarkable. Soft tissues: Unremarkable. IMPRESSION: No acute findings.
--- OUTSIDE RECORDS SUMMARY | 2025-01-26 17:19 | XMS_ITS | Data Portability ---
Author Organization [facility] EVAN Roy [place] [facility] Address [address] [facility] [address] [place] [address] Care Team Providers Care Horse Shoer Name Role Phone SUMIT GARCIA Urologist [phone] Assessment Encounter Date Assessment Date Assessment LastModified by Organization Details LastModified Time 10/03/2022 10/03/2022 37-year-old male with urinary frequency, urgency, weak stream and intermittency which started about 2 years ago. He is in a new relationship and has noticed trouble maintaining an erection. He has tried Viagra up to 50 mg with some improvement. He also has decreased energy, fatigue and decreased libido. We discussed urinary symptoms. I recommend trying ciprofloxacin for acute prostatitis. I also recommend starting Quercetin for possible chronic prostatitis. We discussed trying Flomax at our next visit if no improvement in symptoms. He has a prescription from his PCP for Viagra 100 mg which he plans to try. We also discussed using erection rings to help maintain erections. We discussed his medications may be causing some of his sexual function issues. He is planning to wean off suboxone. I have ordered a testosterone level today. We will follow-up in 2 weeks for recheck. Plan: Try Viagra 100 mg. Check testosterone. Start cipro and Quercetin. Follow-up in 2 weeks. evickers Not available 10/03/2022 08:51:38 Plan of Treatment Reminders Order Date Submit Date Provider Last Modified By Organization Details Last Modified Time Details Appointments None recorded. Lab urinalysis, dipstick 2022 023 evickers Not available 08:34:24 testosteron e, free + total, serum 2022 023 [facility], [address] [place], [address], 12:11:40 Referral None recorded. Procedures None recorded. Surgeries None recorded. Imaging None recorded. Medication Orders ciprofloxac in 500 mg tablet 2022 023 BURT Rodriguez [facility], [address] [place], [id number], 08:38:19 Patient TargetsNo targets recorded. Patient InstructionsNo instructions recorded. Reason for Referral None Reported. Results Created Date Observation Date Name Description Value Unit Range Abnormal Flag Note LastModifiedBy Organization Detail LastModifiedTime 10/04/1910/03/2022 TESTO STERO NE,TO ADELE/F REE testosterone , total 503 NG/dL 249-83 6 normal Refer ence range is for age 20-49 years . Not Available [facility] [address] [place], [address], 10/08/2022 13:31:29 10/04/19 23 10/08/2022 TESTO STERO NE,TO ADELE/F REE testosterone , free 56.9 pg/mL 46.0-2 24.0 normal (Note ) The jannette ntrat ion of free testo stero ne is deriv ed from a ivory malik al model using total testo stero ne by LCMSM S, sex hormo ne napoleon ng globu skyler and album in. This test was devel oped and its sammy tical perfo rmanc e shante cteri stics have been deter mined by [facility]. It has not been clear ed or appro chan by the FDA. This assay has been valid ated pursu ant to the CLIA regul ation s and is used for clini chapo purpo ses. F med fusio n [address] [facility] [address] [place] [address] [phone] Ananda juan MD TEST PERFO RMED AT: [facility] [address] [facility] [address] [place] [address] ANANDA Juan MD Not Available [facility] [address] [place], [address], 10/08/2022 13:31:29 10/04/19 23 10/03/2022 urina lysis , dipst ick Unknown Analyte Yellow Not Available [facility] [address] [place], [address], 10/03/2022 08:13:07 10/04/19 23 10/03/2022 urina lysis , dipst ick Unknown Analyte Clear Not Available [facility] [address] [place], [address], 10/03/2022 08:13:07 10/04/19 23 10/03/2022 urina lysis , dipst ick Unknown Analyte 1.015 Not Available [facility] [address] [place] [address], [address], 10/03/2022 08:13:07 10/04/19 23 10/03/2022 urina lysis , dipst ick Unknown Analyte 5.0 Not Available [facility] [address] [place], [address], 10/03/2022 08:13:07 10/04/19 23 10/03/2022 urina lysis , dipst ick Unknown Analyte Negati ve Not Available [facility] [address] [place], [address], 10/03/2022 08:13:07 10/04/19 23 10/03/2022 urina lysis , dipst ick Unknown Analyte Negati ve Not Available [facility] [address] [place] [address], [address], 10/03/2022 08:13:07 10/04/19 23 10/03/2022 urina lysis , dipst ick Unknown Analyte Negati ve Not Available [facility] [address] [place], [address], 10/03/2022 08:13:07 10/04/19 23 10/03/2022 urina lysis , dipst ick Unknown Analyte Normal Not Available [facility] [address] [place], [address], 10/03/2022 08:13:07 10/04/19 23 10/03/2022 urina lysis , dipst ick Unknown Analyte Negati ve Not Available [facility] [address] [place], [address], 10/03/2022 08:13:07 10/04/19 23 10/03/2022 urina lysis , dipst ick Unknown Analyte Normal Not Available [facility] [address] [place] [address], [address], 10/03/2022 08:13:07 10/04/19 23 10/03/2022 urina lysis , dipst ick Unknown Analyte Negati ve Not Available [facility] [address], [address], 10/03/2022 08:13:07 10/04/19 23 10/03/2022 urina lysis , dipst ick Unknown Analyte Negati ve Not Available [facility] [address], [address], 10/03/2022 08:13:07 10/04/19 23 10/03/2022 urina lysis , dipst ick Unknown Analyte Clean Catch Not Available [facility] [address] [place], [address], 10/03/2022 08:13:07 10/04/19 23 10/03/2022 urina lysis , dipst ick Unknown Analyte Visual Not Available [facility] [address] [place] [address], [phone], 10/03/2022 08:13:07 Result Notes None recorded. Medical Equipment None Reported. Medications Name Sig Start Date Stop Date Status Note LastModified by Organization Details LastModified Time famotidine 10 mg tablet Take 1 tablet every day by oral route. active Not Available Not Available No t Available clonazepam 0.5 mg tablet Take 1 tablet 3 times a day by oral route. active Not Available Not Available No t Available ciprofloxaci n 500 mg tablet Take 1 tablet every 12 hours by oral route as directed for 10 days. 2022 active Not Available Not Available Not Avai lable gabapentin 300 mg capsule Take 1 capsule 3 times a day by oral route. active 500mg Not Available Not Available No t Available Vitamin D3 active Not Available Not Av ailable Not Available Suboxone 8 mg-[address] 1 film every day by sublingual route. active Not Available Not Available No t Available Vitals Date Recorded Body height Body mass index (BMI) Body weight Provider Name and Address Organization Details Last Updated DateTime 10/03/2022 187.96 cm 32.1 kg/m2 157844.09 g Jennie Reina [facility] 10/03/2022 08:35:19 Social History Question Answer Notes LastModified by [employer] Details LastModified Time Tobacco Smoking Status Former Smoker Jennie Reina [facility] 10/03/2022 08:20:51 What Is Your Relationship Status? Single Information not available 10/03/2022 Sex: Unknown Functional Status Question Answer Note LastModified by [employer] Details LastModified Time Do you or have you ever used any other forms of tobacco or nicotine? Yes Information not available 10/03/2022 What is your level of alcohol consumption? None Information not available 10/03/2022 Are you currently employed? 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 Current user of electronic cigarettes Information not available 10/03/2022 Mental Status None recorded. Family History Relationship Description Onset Age of this Age Resolved Age Notes LastModified by Organization Details LastModified Time Paternal Uncle Family history of malignant neoplasm prosta te Not available 10/03/2022 08:20:12 Medical History Condition Response High Cholesterol Y Liver Disease Y Bronchitis Y Past Encounters Encounter ID Performer Location Encounter Start Date Encounter Closed Date Diagnosis/Indication Diagnosis SNOMED-CT Code Diagnosis ICD10 Code Diagnosis Note [id number] SUMIT GARCIA APRN [facility]OLOGY [facility] [address] [place] [address] 10/03/2022 07:49:29 10/07/2022 12:04:50 Reduced libido 5848676 R68.82 Primary er ectile dysfunction 067321673 N52.9 Acute prostatitis 424030 02 N41.0 Poor stream of urine 162 167118 R39.12 Nocturia 866806679 R35.1 Health Concerns Section Related Observation LastModified by Organization Detai ls LastModified Time None Recorded Concern Status LastModified by Organization Details LastModified Time None Recorded Advance Directives Directive None Recorded Payers Insurance Date Sequence Insurance Name Policy Number Policy Paulino Covered Member ID Paulino Member ID Guarantor Name 10/14/2022 2 [facility] (MEDICAID HMO) Sagar Esquivel [id number] Sagar Esquivel 10/14/2022 1 [facility] [id number] Sagar Esquivel [id number] Sagar Esquivel 08/11/2022 1 *SELF PAY* Agnes Esquivel 08/11/2022 [employer] Unknown Sagar Esquivel Notes Date Note Type Note Provider Name and Address Organization Details Recorded Time 10/03/2022 text/html 37-year-old male here for further evaluation of sexual dysfunction. He has a history of IV drug use. He takes Suboxone daily which he started in 2018 after being released from [facility]. He also takes gabapentin for nerve pain and clonazepam as needed for panic attacks. He typically only takes clonazepam 1-2 times per month. He has noticed over the past few months that he is able to achieve an erection however, he is unable to maintain the erection for intercourse. He has tried Viagra up to 50 mg which helps some. His primary care physician gave him a prescription for 100 mg Viagra which she has not tried yet. He also reports difficulty ejaculating. When asked if he has pain during ejaculation, he says not pain but sometimes has a weird sensation. Over the past 2 years, he has developed voiding symptoms including urinary frequency, urgency, weak stream, intermittent stream and straining. He has nocturia x2-3. He denies dysuria or hematuria. He reports decreased energy and fatigue as well as decreased libido. He has not had his testosterone levels checked in the past. He is a former cigarette smoker. He uses electronic cigarettes. SUMIT GARCIA, BOAT FINISHER [address] [place], [address], [facility] 10/03/2022 08:51:51
--- OUTSIDE RECORDS SUMMARY | 2025-01-26 17:19 | XMS_ITS | Clinical Summary ---
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 Active gabapentin (Neurontin) 800 MG tablet Take by mouth 2 (two) times a day. Active famotidine (Pepcid) 20 MG tablet Take by mouth 1 (one) time each day. Active tadalafil (Adcirca) 20 MG tablet 07/17/20 22 Active sildenafil (Viagra) 50 MG tablet 09/03/19 23 Active GNP pseudoephedrine HCL 12 HR 120 MG 12 hr tablet 10/16/19 23 Active fluticasone (Flonase) 50 MCG/ACT nasal spray 07/10/20 22 Active clonazePAM (KlonoPIN) 0.5 MG tablet 09/01/19 23 Active cholecalciferol (Vitamin D-3) 50 MCG (2000 UT) capsule 08/25/19 23 Active cefdinir (Omnicef) 300 MG capsule 10/16/19 23 Active cholecalciferol (Vitamin D3) 1.25 MG (37383 UT) capsule Active sildenafil (Viagra) 100 MG tablet 10/30/19 23 Active Buprenorphine HCl-Naloxone HCl (Suboxone) 8-2 MG SL film 10/30/19 23 Active acetaminophen (Tylenol) 500 MG tablet Take 2 tablets (1,000 mg) by mouth every 6 (six) hours if needed for pain. 40 tablet 12/09/19 23 Active ibuprofen 600 MG tablet Take 1 tablet (600 mg) by mouth every 6 (six) hours. 50 tablet 12/25/19 23 Active Additional Information Patient taking differently:600 mg Oral Every 6 hours scheduled,Patient taking 800 mg tablet as needed, Reported on 09/17/2023 ALPRAZolam XR 0.5 MG 24 hr tablet 04/22/20 23 Active amoxicillin-clavula daljit (Augmentin) 500-125 MG tablet 05/19/20 23 Active azithromycin (Zithromax) 250 MG tablet 07/31/19 24 Active ciprofloxacin (Cipro) 500 MG tablet Take 1 tablet every 12 hours by oral route as directed for 10 days. 10/04/19 23 Active clindamycin (Cleocin) 300 MG capsule 01/30/20 23 Active HYDROcodone-acetami nophen (Leary) 5-325 MG tablet 12/25/19 23 Active ondansetron ODT (Zofran-ODT) 8 MG disintegrating tablet 07/28/19 24 Active predniSONE (Deltasone) 20 MG tablet 07/31/19 24 Active Active Problems Problem Noted Date Diagnosed Date Cubital tunnel syndrome on right 11/25/2022 Overview (11/25/2022): Added automatically from request for surgery [id number] Bilateral carpal tunnel syndrome 04/18/2021 Bilateral hand pain 04/18/2021 Immunizations Immunization Administration Dates Next Due Hep A, Adult 09/10/2018 Family History Medical History Relation Name Comments Heart disease Father Heart disease Mother Relation Name Status Comments Father Mother Social History Tobacco Use Types Packs/Day Years Used Date Smoking Tobacco: Former Cigarettes Q uit: 09/25/2014 Smokeless Tobacco: Former Chew Quit: 06/30/2022 Tobacco Cessation:Counseling Given: Not Answered Alcohol Use Standard Drinks/Week Comments Not Currently 0 (1 standard drink = 0.6 oz pur e alcohol) PHQ-2 Answer Date Recorded Patient Health Questionnaire-2 Score 0 11/21/2022 PHQ-2A Answer Date Recorded Patient Health Questionnaire-2 Score 0 11/21/2022 Sex and Gender Information Value Date Recorded Sex Assigned at Male 01/06/2023 7:47 AM EDT Legal Sex Male 7:35 PM EDT Gender Identity Not on file Sexual Orientation Not on file Last Filed Vital Signs Vital Sign Reading Time Taken Comments Blood Pressure 121/70 09/17/2023 3:05 PM EST Pulse 75 09/17/2023 3:05 PM EST Temperature 36.7 C (98 F) 09/17/2023 3:05 PM EST Respiratory Rate 16 04/09/2023 3:49 PM EDT Oxygen Saturation 99% 09/17/2023 3:05 PM EST Inhaled Oxygen Concentration - - Weight 111 kg (245 lb) 09/17/2023 3:05 PM EST Height 182.9 cm (6') 09/17/2023 3:05 PM EST Body Mass Index 33.23 09/17/2023 3:05 PM EST Plan of Treatment Health Maintenance Due Date Last Done Comments [facility]-HIV Screening 1983 [facility]-Infant/Child/Adol SDOH Screenings 1983 [id number] Vaccine (#1) 02/16/1988 [facility]-Varicella Vaccines (1 of 2 - 13+ 2-dose series) 02/16/1996 HPV Vaccines (1 - Male 3-dos e series) 1998 [facility]- SDOH Screenings 2001 [facility]-Adult SDOH Screenings 2001 [facility]-Hepatitis B Vaccines (1 of 3 - 19+ 3-dose series) 2002 [facility]-Zoster Vaccines (1 of 2) 2002 [facility]-Depression Screening 11/22/2023 11/21/2022 [facility]-Influenza Vaccine (#1) 03/27/202504/28, 04/22/2019 [facility]-DTaP,Tdap,and Td Vaccine s (2 - Td or Tdap) 08/31/2031 08/31/2021 [facility]-Hepatitis C Screening Completed 09/10/2018 [facility]-Hepatitis A Vaccines Aged Out 019, 09/10/2018 No longer eligible based on patient's age to complete this topic [facility]-Obesity Intervention Completed 09/17/2023 [facility]-HIB Vaccines Aged Out No longer e ligible based on patient's age to complete this topic [facility]-IPV Vaccines Aged Out No longer e ligible based on patient's age to complete this topic [facility]-Pneumococcal Vaccine: Pediatrics (0 to 5 Years) and At-Risk Patients (6 to 49 Years) Aged Out No longer eligible b ased on patient's age to complete this topic [facility]-Rotavirus Vaccines Aged Out No lo nger eligible based on patient's age to complete this topic Procedures Procedure Name Priority Date/Time Associated Diagnosis Comments HEPATITIS C VIRUS (HCV) QUANTITATIVE PCR Routine 09/10/2018 12:26 PM EST from Last 3 Months or Most Recently Relevant to Health Maintenance Results * Hepatitis C Virus (HCV) Quantitative PCR (09/10/2018 12:26 PM EST) Hepatitis C Virus (HCV) Quantitative Viral Load Log Result 5.74 [facility] Hepatitis C Virus (HCV) Quantitative IU/mL Result 552,087 [facility] HCV Quantitative PCR Comment Reference Interval: Not Detected, Log IU/mL <1.08, IU/mL <12 [facility] Comment: The [facility] M2000 HCV test is a Real Time in vitro nucleic acid amplification test for the quantitation of Hepatitis C Viral (HCV) RNA in human serum in HCV-infected individuals. It is intended for use as an aid in the management of HCV-infected individuals undergoing anti-viral therapy. The dynamic range for this test is log10 = 1.08 to 8.00and/or 12 to 100,000,000 IU/mL. The limit of detection (LOD) for this assay is 12 IU/mL and the limit of quantitation (LOQ) is 12 IU/mL. This assay is FDA approved for clinical use. 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
== END 2025-01-26 23:59 | disposition home or self-care (01) ==
LOC: RAD 17:18
PROVIDERS: PCP Family Medicine; Visit Provider Family Medicine
DX: R56.9 Unspecified convulsions (principal)
CPT/HCPCS: 70551